=== PATIENT | male | born 1975 | race Caucasian/White ===

== ENCOUNTER 2017-11-13 15:05 | Inpatient (IN) | payer BC, SELFPAY ==
[2017-11-13] VITALS (13 sets, daily range): BP systolic 108–147; BP diastolic 89–126; PULSE 119–130; RESP 17–23; TEMP 36.3–36.7; O2SAT 26–96; BMI 49.4; BMI 49.5; BMI 45.6
--- NOTE | 2017-11-13 15:19 | EKG12_ITS ---
Test Reason : Blood Pressure : / mmHG Vent. Rate : 128 BPM Atrial Rate : 128 BPM P-R Int : 132 ms QRS Dur : 116 ms QT Int : 340 ms P-R-T Axes : 049 091 -30 degrees QTc Int : 496 ms Possible atrial flutter with 2:1 conduction Anterolateral infarct , age undetermined Abnormal ECG Confirmed by JOANNA GALVEZ ([id number]), editor farm journal [facility] SETH ([id number]) on 11/16/2017 2:35:33 PM Referred By: JORDEN Confirmed By:JOANNA GALVEZ
--- NOTE | 2017-11-13 15:21 | CT_ITS ---
STUDY: CTA CHEST REASON FOR EXAM: Male, 42 years old. Hypoxia syncope RADIATION DOSAGE (If Supplied By Facility): CTDIvol = ( 30.02 ) mGy, DLP = ( 782.73 ) mGycm TECHNIQUE: The examination was performed with the intravenous administration of 100ML ml of Isovue 370 contrast material. Post-processing of the angiographic images was performed, with multiplanar reformation and 3D reconstruction. Individualized dose optimization techniques were used for this CT. COMPARISON: None. FINDINGS: There is dense clot extending from the right pulmonary artery into the upper and to greater degree the lower lobe branches including the interlobar artery diffusely and into the lower lobe segmental and subsegmental branches. This is similar on the left side with dense large clot burden within the distal left pulmonary artery extending into the lower lobe branches extensively into the segmental and subsegmental branches. This is also seen in the left upper lobe branches. There is abnormal enhancement of the peripheral pulmonary arteries. Findings are positive for pulmonary embolism. Normal thoracic aorta and visualized great vessels. There is no demonstrated aortic dissection. There is borderline cardiac enlargement. Normal mediastinum. There are bilateral pulmonary emboli. Normal visualized trachea and bronchi. There are interstitial nodular infiltrates within the right lower lobe image #142. There is a focus of interstitial nodular infiltrate in the lingula. Normal pleura. There is bilateral gynecomastia. There are degenerative changes of thoracic spine. The liver is borderline enlarged and fatty infiltrated. There is borderline splenomegaly. CT/CTA Chest W/WO Contrast IMPRESSION: Extensive bilateral pulmonary emboli as detailed above involving both the distal pulmonary arteries branches of the upper and lower lobe pulmonary arteries. Right lower lobe interstitial nodular infiltrate. Lingular interstitial nodular infiltrates. N.B. : The above information has been verbally conveyed by Ladan Zabala MD to Dr. Noel Hernández, Referring Physician, on 11/13/2017 16:21:46 (ET). Electronically Signed: Ladan Zabala MD at 16:20 EDT Tel , Service support , N.B. : The above information has been verbally conveyed by Ladan Zabala MD to Dr. Noel Hernández, Referring Physician, on 11/13/2017 16:21:46 (ET).
[2017-11-13] MEDS: HEPARIN/D5w 25,000 UNITS 25,000 UNITS/250 ML IV.SOLN. 2100 UNITS IV (15:31)
[2017-11-13 15:32] LABS: Absolute Lymphocyte Count 3.36 X10^3/ul (0.83-4.51); Basophil# 0.04 X10^3/uL; Basophil% 0.3 % (0-1); Eosinophils% 0.8 % (0-5); Hematocrit 46.3 % (40-54); Hemoglobin 16.4 g/dl (13.0-16.5); Lymphocyte # 3.36 X10^3/ul (4.0); Lymphocyte % 26.5 % (19-41); Mean Corp Hgb Conc 35.4 g/gl (32-36); Mean Corpuscular Hgb 28.4 pg (27.0-32.0); Mean Corpuscular Volume 80.2 fL (80-94); Mean Platelet Vol. 11.3 fl (6.2-12.0); Monocyte# 1.12 X10^3/uL; Monocyte% 8.8 % (0-10); Neutrophil % 63.2 % (47-70); Platelet Count 209 K/mm3 (150-450); RBC Distribution Width CV 14.1 % (11.6-14.6); RBC Distribution Width SD 40.2 fl (35.1-43.9); Red Blood Count 5.77 M/mm3 (4.6-6.2); White Blood Count 12.7 K/mm3 (4.4-11.0)
[2017-11-13 15:40] LABS: POSITIVE COUNT NO; POSITIVE DIFFERENTIAL NO; POSITIVE MORPHOLOGY NO
[2017-11-13 15:48] LABS: Anion Gap 12 (5-15); BUN 12 mg/dL (7-18); BUN/Creat Ratio 10.8 RATIO (10-20); Calcium,Total 8.6 mg/dL (8.5-10.1); Chloride 101 mmol/L (98-107); Creatinine, Serum 1.11 mg/dL (0.70-1.30); EST Glomerular Filtration Rate 78 mL/min (>60); Est Glom Filt Rate - Afr Amer 94 mL/min (>60); Estimated Creatinine Clearance 98.98 ml/min; Glucose 389 mg/dL (74-106); Potassium 3.8 mmol/L (3.5-5.1); Sodium Level 134 mmol/L (136-145)
[2017-11-13 15:50] LABS: International Normalized Ratio 1.2; Prothrombin Time (Protime)PT. 15.5 SECONDS (11.7-14.9)
[2017-11-13 15:51] LABS: Partial Thromboplast Time 24.1 Seconds (24.1-36.2)
[2017-11-13 16:04] LABS: BNP,B-Type NATRIURETIC PEPTIDE 292.5 pg/mL (0-100)
--- NOTE | 2017-11-13 16:14 | ED.VISSUMM ---
- ER Visit Summary Date of Service: 11/13/17 Chief Complaint: Syncope and dyspnea History of Present Illness: The patient is a 42 M who presents after syncopal episode with shortness of breath and diaphoresis. He was sitting when he passed out. He states he felt like something was moving across his chest before passing out. He denies history of PE or DVT. He states he has chronic swelling of his left leg secondary to fracture. He has no risk factors for pulmonary embolus. He denies fever, chills night sweats. He denies weight gain or weight loss. He denies any ocular, visual or auditory symptoms. He does report palpitations and the unusual chest discomfort prior to syncope. He presently complains of dyspnea and dyspnea on exertion. He denies cough, orthopnea, PND. He denies abdominal pain, nausea, vomiting or diarrhea. He denies black or maroon stool. He denies dysuria, frequency, urgency or hematuria. He denies myalgias, arthralgias or back pain. He denies rash or any lesions. He denies headache, weakness, paresthesias, anesthesias or motor weakness. He does report slight anxiousness. He denies bruising easily or bleeding disorder. He denies urticaria or angioedema. Physical Examination: Vital signs unremarkable blood pressure 137/93, temperature 96.7, heart rate 130, respiratory 23 and a saturation 97% on room air. He appears slightly diaphoretic. BMI is 49.5. He appears slightly pale and diaphoretic. Head is atraumatic normocephalic. Pupils are equal round reactive. Extraocular muscles are intact. TMs are pearly white with landmarks noted. Nares patent with no drainage. Posterior pharynx without erythema or exudate. Uvula is midline. There is no dysphonia or dysphasia. Trachea is midline. There is no stridor with auscultation of the neck. Heart is rapid and regular without murmur, gallop or rub. S1 and S2 are normal. Lungs are clear to auscultation with good movement of air bilaterally. Abdomen is soft nontender. There is 1-2+ pitting edema both right and left lower extremity. Neuro exam is nonfocal. Test Results: EEG reveals sinus tachycardia rate of 128 with significant right heart strain and S1, every 3 and T3 consistent with pulmonary embolus. CTA of the of the chest was reviewed by me and reveals significant right and left main pulmonary emboli with significant clot burden. Awaiting formal read by radiologist. White count elevated 12.7. Glucose elevated 389. Mitral counseled was unremarkable. INR and PTT are normal. Troponin is elevated 0.19 and B SANITATION WORKER HOSING MACHINERY is 292.5. Call was placed to hospitalist regarding admission and tin flopper for consideration of thrombolytics. Patient's blood pressure has dropped from presentation to the systolic 101 and pulse ox has dropped from 97% to 91%. Recommend admission to stepdown unit versus ICU. Emergency Department Course and Treatment: After reviewing x-ray that was performed per nurse protocol. Patient has classic finding for mass/submassive pulmonary embolus with right heart strain and an S1, every 3 T3 with a rate of 120. Appropriate blood work was ordered as well as CTA. He did receive a 3 cc/kg bolus of normal saline. He was started on heparin. Did receive a bolus. Spoke with Dr. Monge regarding echocardiogram to evaluate for significant heart strain and possibility of TPA. Treatment Plan: Admit in serious to critical condition on heparin bolus and drip. Disposition: Full admission Impression: 1. Submassive pulmonary embolus with high clot burden 2. Sinus tachycardia documented on monitor with right heart strain and findings consistent with pulmonary embolus 3. Hyperglycemia in a nondiabetic, 389 4. History of hypertension This note was generated with [employer] dictation software. It may contain incorrect words, spelling, and punctuation that were not noted in review of the chart prior to signing ED Disposition - Plan for ED Patient: Chief Complaint: Syncope
--- NOTE | 2017-11-13 16:25 | ED.DCSUM_ITS ---
- ER Visit Summary Date of Service: 11/13/17 Chief Complaint: Syncope and dyspnea History of Present Illness: The patient is a 42 M who presents after syncopal episode with shortness of breath and diaphoresis. He was sitting when he passed out. He states he felt like something was moving across his chest before passing out. He denies history of PE or DVT. He states he has chronic swelling of his left leg secondary to fracture. He has no risk factors for pulmonary embolus. He denies fever, chills night sweats. He denies weight gain or weight loss. He denies any ocular, visual or auditory symptoms. He does report palpitations and the unusual chest discomfort prior to syncope. He presently complains of dyspnea and dyspnea on exertion. He denies cough, orthopnea, PND. He denies abdominal pain, nausea, vomiting or diarrhea. He denies black or maroon stool. He denies dysuria, frequency, urgency or hematuria. He denies myalgias, arthralgias or back pain. He denies rash or any lesions. He denies headache, weakness, paresthesias, anesthesias or motor weakness. He does report slight anxiousness. He denies bruising easily or bleeding disorder. He denies urticaria or angioedema. Physical Examination: Vital signs unremarkable blood pressure 137/93, temperature 96.7, heart rate 130, respiratory 23 and a saturation 97% on room air. He appears slightly diaphoretic. BMI is 49.5. He appears slightly pale and diaphoretic. Head is atraumatic normocephalic. Pupils are equal round reactive. Extraocular muscles are intact. TMs are pearly white with landmarks noted. Nares patent with no drainage. Posterior pharynx without erythema or exudate. Uvula is midline. There is no dysphonia or dysphasia. Trachea is midline. There is no stridor with auscultation of the neck. Heart is rapid and regular without murmur, gallop or rub. S1 and S2 are normal. Lungs are clear to auscultation with good movement of air bilaterally. Abdomen is soft nontender. There is 1-2+ pitting edema both right and left lower extremity. Neuro exam is nonfocal. Test Results: EEG reveals sinus tachycardia rate of 128 with significant right heart strain and S1, every 3 and T3 consistent with pulmonary embolus. CTA of the of the chest was reviewed by me and reveals significant right and left main pulmonary emboli with significant clot burden. Awaiting formal read by radiologist. White count elevated 12.7. Glucose elevated 389. Mitral counseled was unremarkable. INR and PTT are normal. Troponin is elevated 0.19 and B BLACK TOP PAVER OPERATOR is 292.5. Call was placed to hospitalist regarding admission and sql report writer for consideration of thrombolytics. Patient's blood pressure has dropped from presentation to the systolic 101 and pulse ox has dropped from 97% to 91%. Recommend admission to stepdown unit versus ICU. Emergency Department Course and Treatment: After reviewing x-ray that was performed per nurse protocol. Patient has classic finding for mass/submassive pulmonary embolus with right heart strain and an S1, every 3 T3 with a rate of 120. Appropriate blood work was ordered as well as CTA. He did receive a 3 cc/ kg bolus of normal saline. He was started on heparin. Did receive a bolus. Spoke with Dr. Monge regarding echocardiogram to evaluate for significant heart strain and possibility of TPA. Treatment Plan: Admit in serious to critical condition on heparin bolus and drip. Disposition: Full admission Impression: 1. Submassive pulmonary embolus with high clot burden 2. Sinus tachycardia documented on monitor with right heart strain and findings consistent with pulmonary embolus 3. Hyperglycemia in a nondiabetic, 389 4. History of hypertension This note was generated with [employer] dictation software. It may contain incorrect words, spelling, and punctuation that were not noted in review of the chart prior to signing ED Disposition - Plan for ED Patient: Chief Complaint: Syncope
[2017-11-13] MEDS: Heparin Injection 5,000 UNITS/ML Syringe 13000 UNITS IV (16:35)
--- NOTE | 2017-11-13 17:36 | PCM.HP.STD ---
Problem List (1) Pulmonary embolism Status: Acute (2) NSTEMI (non-ST elevated myocardial infarction) Status: Acute (3) DM2 (diabetes mellitus, type 2) Status: Chronic Qualifiers: Diabetes mellitus exterminator termite insulin use: without nursing home use (4) Morbid obesity Status: Chronic (5) Hypertension Status: Chronic History of Present Illness Date of Admission: 11/13/17 Chief Complaint: shortness of breath. syncope The patient is a 42 year old M who developed shortness of breath today and had a syncopal episode while he was sitting up. Presented to the emergency room and was concerning for pulmonary embolism and patient was started on heparin drip. Patient was tachycardic but sats remained normal. A CT angiogram of the chest showed bilateral pulmonary emboli. Patient denies any history of blood clots in his legs or his lungs before. Patient states that he has chronic lower extremity swelling but no new changes noted with that. Patient has not had any prolonged in immobility recently. Patient denies any chest pain. [] Past Medical History Past Medical History (Chronic Problems): Chronic Problems DM2 (diabetes mellitus, type 2) (Chronic) Morbid obesity (Chronic) Hypertension (Chronic) Allergies No Known Allergies Allergy (Verified 11/13/17 15:06) Home Medications: Ambulatory Orders Medication Instructions Recorded Lisinopril [Zestril] 10 mg PO DAILY 11/13/17 Psychiatric History: No pertinent psych hx Lives: Spouse/ Significant Other Smoking Status: Never smoker Tobacco Use: Non-smoker Alcohol: None Drugs: None - *Family History Maternal History Items: - - No VTE Review of Systems Constitutional: Denies: Anorexia, Chills, Fever, Weight Change Eyes: Denies: Blurred vision, Double vision HEENT: Denies: Difficulty Hearing Cardiovascular: Reports: Edema, - - noted apneic episodes per .. Denies: Chest Pain, Claudication, Chest Pressure, Chest Tightness Respiratory: Reports: Shortness of Breath, Shortness of breath upon exertion. Denies: Hemoptysis Gastrointestinal: Denies: Abdominal Pain, Nausea, Vomiting Genitourinary: Denies: Dysuria Musculoskeletal: Denies: Joint Pain, Joint Tenderness Skin: Denies: Rash, Wounds Neurological: Reports: - - syncope. Denies: Focal weakness, Numbness, Tingling Psychiatric: Denies: Anxiety, Depression Endocrine: Denies: Change in Body Habitus, Heat/ Cold Intolerance Hematologic/ Lymphatic: Denies: Easy Bruising, Easy Bleeding, Hx of blood clot VTE Information - Inpt Only VTE Present on Admission: Yes Patient Problems: Active and Suspected Problems Pulmonary embolism (Acute) NSTEMI (non-ST elevated myocardial infarction) (Acute) - Physical Exam General: Alert, Cooperative, No apparent distress, - - No respiratory distress. No conversational dyspnea. HEENT: Atraumatic, Normocephalic Oral: Moist Mucosa, No Gingival or Mucosal Lesions/ Ulcerations Neck: No Nodes, Thyroid Normal Size and Texture Lungs: Clear to auscultation, Normal air movement, No rhonchi, No wheeze Cardiovascular: Regular Rhythm, Normal S1, Normal S2, Tachycardic Abdomen: Bowel Sounds Present, Soft, Non Tender, Non-Distended, No Hepato-splenomegaly, Obese Extremities: No Calf Tenderness, Edema - Trace Skin: No rashes, No breakdown Musculoskeletal: No Tenderness to Palpation of Joints or Extremities, No Muscle Wasting Neurological: - - DTRs are 3-4 in the right patellar reflex and throat for left patellar reflex. No clonus. Psych/Mental Status: Normal Affect, Appropriate Vital Signs Temp Pulse Resp BP Pulse Ox 36.7 C 126 H 17 124/92 H 94 11/13/17 16:40 11/13/17 16:40 11/13/17 16:40 11/13/17 16:40 11/13/17 16:40 Oxygen Delivery Method Room Air Weight: 170.097 kg Body Mass Index (BMI) 49.4 Laboratory Tests Past 24 Hrs 11/13/17 11/13/17 11/13/17 15:15 15:15 15:15 WBC 12.7 H RBC 5.77 Hgb 16.4 Hct 46.3 MCV 80.2 MCH 28.4 MCHC 35.4 RDW 14.1 RDW Differential 40.2 Plt Count 209 MPV 11.3 Immature Gran % (Auto) 0.400 Neut % (Auto) 63.2 Lymph % (Auto) 26.5 [place] % (Auto) 8.8 Eos % (Auto) 0.8 Baso % (Auto) 0.3 Absolute Neuts (auto) 8.0 H Absolute Lymphs (auto) 3.36 Total Counted Not Reportable PT 15.5 H INR 1.2 APTT 24.1 Sodium 134 L Potassium 3.8 Chloride 101 Carbon Dioxide 21.0 Anion Gap 12 BUN 12 Creatinine 1.11 Estim Creat Clear Calc 98.98 Est GFR (MDRD) Af Amer 94 Est GFR (MDRD) Non-Af 78 BUN/Creatinine Ratio 10.8 Glucose 389 H Calcium 8.6 Troponin I 0.19 H B-Natriuretic Peptide 11/13/17 15:15 WBC RBC Hgb Hct MCV MCH MCHC RDW RDW Differential Plt Count MPV Immature Gran % (Auto) Neut % (Auto) Lymph % (Auto) [place] % (Auto) Eos % (Auto) Baso % (Auto) Absolute Neuts (auto) Absolute Lymphs (auto) Total Counted PT INR APTT Sodium Potassium Chloride Carbon Dioxide Anion Gap BUN Creatinine Estim Creat Clear Calc Est GFR (MDRD) Af Amer Est GFR (MDRD) Non-Af BUN/Creatinine Ratio Glucose Calcium Troponin I B-Natriuretic Peptide 292.5 H Clinical Impression(s) from Imaging Studies Chest CTA 11/13/17 15:21 IMPRESSION: Extensive bilateral pulmonary emboli as detailed above involving both the distal pulmonary arteries branches of the upper and lower lobe pulmonary arteries. Right lower lobe interstitial nodular infiltrate. Lingular interstitial nodular infiltrates. N.B. : The above information has been verbally conveyed by Ladan Zabala MD to Dr. Noel Hernández, Referring Physician, on 11/13/2017 16:21:46 (ET). Electronically Signed: Ladan Zabala MD at 16:20 EDT Tel , Service support , N.B. : The above information has been verbally conveyed by Ladan Zabala MD to Dr. Noel Hernández, Referring Physician, on 11/13/2017 16:21:46 (ET). Assessment/Plan Active and Suspected Problems Pulmonary embolism (Acute) NSTEMI (non-ST elevated myocardial infarction) (Acute) 1. Acute pulmonary emboli I do not feel the patient requires TPA at this time. I agree with continuation of a heparin drip for now. Will assess patient's but I did discuss briefly about oral anticoagulants. I did recommend Xarelto or Eliquis over Pradaxa and Coumadin. Once patient is more medically stable I feel that patient can be initiated on oral anticoagulation. Given that this was an event that was unprovoked, patient would require indefinite, lifelong anticoagulation. 2. Non-STEMI Likely type II I feel this is secondary to the pulmonary embolism. We will cycle troponin series but I do not feel it necessary for cardiology to be involved at this time. I do not feel that stress tests is warranted at this time as I feel that the likely etiology is due to the pulmonary emboli Check an echocardiogram to evaluate for right heart strain. 3. Diabetes mellitus type 2 Newly diagnosed but I feel this is more chronic discussed with the patient that we will put him on sliding scale insulin while he was here. Certainly the underlying duress of the pulmonary embolism is Contributing somewhat to his elevated blood sugar but I feel that he most likely has very poorly controlled diabetes at baseline. Check an A1c Depending on blood sugars play out then patient may be a candidate for metformin but they will need to be held for [address] angiogram 4. Possible obstructive sleep apnea notes the patient's had witnessed apneic episodes. Patient has not sought evaluation for this. I did impress upon him the importance of sleep study and evaluation for sleep apnea and central risk for heart failure and even . 5. Morbid obesity Patient expressed desire to lose weight. 6. Syncope secondary to the pulmonary emboli Code Visit Inpatient E&M: 08514 Init Hosp L3
--- NOTE | 2017-11-13 17:46 | HP.PCM_ITS ---
Problem List (1) Pulmonary embolism Status: Acute (2) NSTEMI (non-ST elevated myocardial infarction) Status: Acute (3) DM2 (diabetes mellitus, type 2) Status: Chronic Qualifiers: Diabetes mellitus oil heaterman insulin use: without detention use (4) Morbid obesity Status: Chronic (5) Hypertension Status: Chronic History of Present Illness Date of Admission: 11/13/17 Chief Complaint: shortness of breath. syncope The patient is a 42 year old M who developed shortness of breath today and had a syncopal episode while he was sitting up. Presented to the emergency room and was concerning for pulmonary embolism and patient was started on heparin drip. Patient was tachycardic but sats remained normal. A CT angiogram of the chest showed bilateral pulmonary emboli. Patient denies any history of blood clots in his legs or his lungs before. Patient states that he has chronic lower extremity swelling but no new changes noted with that. Patient has not had any prolonged in immobility recently. Patient denies any chest pain. [] Past Medical History Past Medical History (Chronic Problems): Chronic Problems DM2 (diabetes mellitus, type 2) (Chronic) Morbid obesity (Chronic) Hypertension (Chronic) Allergies No Known Allergies Allergy (Verified 11/13/17 15:06) Home Medications: Ambulatory Orders Medication Instructions Recorded Lisinopril [Zestril] 10 mg PO DAILY 11/13/17 Psychiatric History: No pertinent psych hx Lives: Spouse/ Significant Other Smoking Status: Never smoker Tobacco Use: Non-smoker Alcohol: None Drugs: None - *Family History Maternal History Items: - - No VTE Review of Systems Constitutional: Denies: Anorexia, Chills, Fever, Weight Change Eyes: Denies: Blurred vision, Double vision HEENT: Denies: Difficulty Hearing Cardiovascular: Reports: Edema, - - noted apneic episodes per .. Denies: Chest Pain, Claudication, Chest Pressure, Chest Tightness Respiratory: Reports: Shortness of Breath, Shortness of breath upon exertion. Denies: Hemoptysis Gastrointestinal: Denies: Abdominal Pain, Nausea, Vomiting Genitourinary: Denies: Dysuria Musculoskeletal: Denies: Joint Pain, Joint Tenderness Skin: Denies: Rash, Wounds Neurological: Reports: - - syncope. Denies: Focal weakness, Numbness, Tingling Psychiatric: Denies: Anxiety, Depression Endocrine: Denies: Change in Body Habitus, Heat/ Cold Intolerance Hematologic/ Lymphatic: Denies: Easy Bruising, Easy Bleeding, Hx of blood clot VTE Information - Inpt Only VTE Present on Admission: Yes Patient Problems: Active and Suspected Problems Pulmonary embolism (Acute) NSTEMI (non-ST elevated myocardial infarction) (Acute) - Physical Exam General: Alert, Cooperative, No apparent distress, - - No respiratory distress. No conversational dyspnea. HEENT: Atraumatic, Normocephalic Oral: Moist Mucosa, No Gingival or Mucosal Lesions/ Ulcerations Neck: No Nodes, Thyroid Normal Size and Texture Lungs: Clear to auscultation, Normal air movement, No rhonchi, No wheeze Cardiovascular: Regular Rhythm, Normal S1, Normal S2, Tachycardic Abdomen: Bowel Sounds Present, Soft, Non Tender, Non-Distended, No Hepato- splenomegaly, Obese Extremities: No Calf Tenderness, Edema - Trace Skin: No rashes, No breakdown Musculoskeletal: No Tenderness to Palpation of Joints or Extremities, No Muscle Wasting Neurological: - - DTRs are 3-4 in the right patellar reflex and throat for left patellar reflex. No clonus. Psych/Mental Status: Normal Affect, Appropriate Vital Signs Temp Pulse Resp BP Pulse Ox 36.7 C 126 H 17 124/92 H 94 11/13/17 16:40 11/13/17 16:40 11/13/17 16:40 11/13/17 16:40 11/13/17 16:40 Oxygen Delivery Method Room Air Weight: 170.097 kg Body Mass Index (BMI) 49.4 Laboratory Tests Past 24 Hrs 11/13/17 11/13/17 11/13/17 15:15 15:15 15:15 WBC 12.7 H RBC 5.77 Hgb 16.4 Hct 46.3 MCV 80.2 MCH 28.4 MCHC 35.4 RDW 14.1 RDW Differential 40.2 Plt Count 209 MPV 11.3 Immature Gran % (Auto) 0.400 Neut % (Auto) 63.2 Lymph % (Auto) 26.5 Dawson % (Auto) 8.8 Eos % (Auto) 0.8 Baso % (Auto) 0.3 Absolute Neuts (auto) 8.0 H Absolute Lymphs (auto) 3.36 Total Counted Not Reportable PT 15.5 H INR 1.2 APTT 24.1 Sodium 134 L Potassium 3.8 Chloride 101 Carbon Dioxide 21.0 Anion Gap 12 BUN 12 Creatinine 1.11 Estim Creat Clear Calc 98.98 Est GFR (MDRD) Af Amer 94 Est GFR (MDRD) Non-Af 78 BUN/Creatinine Ratio 10.8 Glucose 389 H Calcium 8.6 Troponin I 0.19 H B-Natriuretic Peptide 11/13/17 15:15 WBC RBC Hgb Hct MCV MCH MCHC RDW RDW Differential Plt Count MPV Immature Gran % (Auto) Neut % (Auto) Lymph % (Auto) Dawson % (Auto) Eos % (Auto) Baso % (Auto) Absolute Neuts (auto) Absolute Lymphs (auto) Total Counted PT INR APTT Sodium Potassium Chloride Carbon Dioxide Anion Gap BUN Creatinine Estim Creat Clear Calc Est GFR (MDRD) Af Amer Est GFR (MDRD) Non-Af BUN/Creatinine Ratio Glucose Calcium Troponin I B-Natriuretic Peptide 292.5 H Clinical Impression(s) from Imaging Studies Chest CTA 11/13/17 15:21 IMPRESSION: Extensive bilateral pulmonary emboli as detailed above involving both the distal pulmonary arteries branches of the upper and lower lobe pulmonary arteries. Right lower lobe interstitial nodular infiltrate. Lingular interstitial nodular infiltrates. N.B. : The above information has been verbally conveyed by Ladan Zabala MD to Dr. Noel Hernández, Referring Physician, on 11/13/2017 16:21:46 (ET). Electronically Signed: Ladan Zabala MD at 16:20 EDT Tel , Service support , N.B. : The above information has been verbally conveyed by Ladan Zabala MD to Dr. Noel Hernández, Referring Physician, on 11/13/2017 16:21:46 (ET). Assessment/Plan Active and Suspected Problems Pulmonary embolism (Acute) NSTEMI (non-ST elevated myocardial infarction) (Acute) 1. Acute pulmonary emboli * I do not feel the patient requires TPA at this time. I agree with continuation of a heparin drip for now. * Will assess patient's but I did discuss briefly about oral anticoagulants. I did recommend Xarelto or Eliquis over Pradaxa and Coumadin. Once patient is more medically stable I feel that patient can be initiated on oral anticoagulation. Given that this was an event that was unprovoked, patient would require indefinite, lifelong anticoagulation. 2. Non-STEMI * Likely type II * I feel this is secondary to the pulmonary embolism. We will cycle troponin series but I do not feel it necessary for cardiology to be involved at this time. * I do not feel that stress tests is warranted at this time as I feel that the likely etiology is due to the pulmonary emboli * Check an echocardiogram to evaluate for right heart strain. 3. Diabetes mellitus type 2 * Newly diagnosed but I feel this is more chronic discussed with the patient that we will put him on sliding scale insulin while he was here. Certainly the underlying duress of the pulmonary embolism is * Contributing somewhat to his elevated blood sugar but I feel that he most likely has very poorly controlled diabetes at baseline. * Check an A1c * Depending on blood sugars play out then patient may be a candidate for metformin but they will need to be held for [address] angiogram 4. Possible obstructive sleep apnea * notes the patient's had witnessed apneic episodes. Patient has not sought evaluation for this. I did impress upon him the importance of sleep study and evaluation for sleep apnea and central risk for heart failure and even . 5. Morbid obesity * Patient expressed desire to lose weight. 6. Syncope * secondary to the pulmonary emboli Code Visit Inpatient E&M: 96041 Init Hosp L3
[2017-11-13] MEDS: 0.9% Normal Saline 1,000 ML 150 ML IV (19:11)
[2017-11-13] MEDS: Ondansetron 4 MG/2 ML Vial IV (19:11)
[2017-11-13 21:49] LABS: Partial Thromboplast Time 66.7 Seconds (24.1-36.2)
[2017-11-13 22:55] LABS: Bedside Glucose 347 mg/dL (70-110)
[2017-11-14] VITALS (19 sets, daily range): BP systolic 115–140; BP diastolic 83–102; PULSE 102–118; RESP 18–22; TEMP 36.6–37.3; O2SAT 91–97
[2017-11-14] MEDS: MELATONIN 3 MG TABLET PO ×2 (00:01→22:20)
[2017-11-14 01:01] LABS: Bedside Glucose 307 mg/dL (70-110)
[2017-11-14] MEDS: Ondansetron 4 MG/2 ML Vial IV (02:50)
[2017-11-14] MEDS: HEPARIN/D5w 25,000 UNITS 25,000 UNITS/250 ML IV.SOLN. 20 UNITS IV ×3 (03:58→20:59)
[2017-11-14 04:30] LABS: Hematocrit 42.7 % (40-54); Hemoglobin 14.9 g/dl (13.0-16.5); Mean Corp Hgb Conc 34.9 g/gl (32-36); Mean Corpuscular Hgb 28.3 pg (27.0-32.0); Mean Platelet Vol. 11.4 fl (6.2-12.0); Platelet Count 190 K/mm3 (150-450); RBC Distribution Width CV 14.1 % (11.6-14.6); RBC Distribution Width SD 40.9 fl (35.1-43.9); Red Blood Count 5.27 M/mm3 (4.6-6.2); White Blood Count 13.7 K/mm3 (4.4-11.0)
[2017-11-14 04:35] LABS: Partial Thromboplast Time 40.3 Seconds (24.1-36.2)
[2017-11-14 04:39] LABS: Scan Indicated on CBC? Y/N NO
[2017-11-14 04:43] LABS: Anion Gap 13 (5-15); BUN 13 mg/dL (7-18); BUN/Creat Ratio 13.9 RATIO (10-20); Calcium,Total 8.4 mg/dL (8.5-10.1); Chloride 101 mmol/L (98-107); Creatinine, Serum 0.93 mg/dL (0.70-1.30); EST Glomerular Filtration Rate 95 mL/min (>60); Est Glom Filt Rate - Afr Amer 115 mL/min (>60); Estimated Creatinine Clearance 118.13 ml/min; Glucose 326 mg/dL (74-106); Sodium Level 135 mmol/L (136-145)
[2017-11-14 06:35] LABS: Bedside Glucose 367 mg/dL (70-110)
--- NOTE | 2017-11-14 08:10 | PCM.PROGNOTE ---
Patient Problems: Active and Suspected Problems Pulmonary embolism (Acute) NSTEMI (non-ST elevated myocardial infarction) (Acute) Subjective: Chief complaint: Follow-up after admission for extensive bilateral mammary emboli, acute non-ST elevation DE and newly diagnosed type 2 diabetes mellitus. Patient seen and examined. No acute events overnight. He mentioned that his breathing is getting better. Denied chest pain or palpitations. Denied dizziness or lightheadedness. He denied recent history of surgery. Denied patient history of cancer. He is active doing his daily activities without restrictions. He denied personal or family history of bleeding or clotting problems. He is afebrile, tachycardic, blood pressure stable and his pulse ox is 93% on room air. - Physical Exam General: Alert, Oriented x3, Cooperative, - - Minimal shortness of breath. HEENT: Atraumatic, PERRLA, EOMI Oral: Moist Mucosa, No Gingival or Mucosal Lesions/ Ulcerations Neck: Supple, No JVD, Negative Carotid Bruits, Trachea Midline, Thyroid Normal Size and Texture Lungs: Clear to auscultation, No rhonchi, No wheeze, No rales, Diminished Cardiovascular: Regular rate, Regular Rhythm, Normal S1, Normal S2, PMI Normal, Tachycardic Abdomen: Bowel Sounds Present, Soft, Non Tender, Non-Distended, No Hepato-splenomegaly Extremities: No clubbing, No cyanosis, No edema Skin: No rashes, No breakdown Lymphatic: No Cervical, Supraclavicular, or Inguinal Adenopathy Neurological: Cranial nerves II-XII grossly intact, Motor Exam 5/5 strength throughout Psych/Mental Status: Normal Affect, Appropriate, Alert and oriented to time, place, person, mood and affect Vital Signs Temp Pulse Resp BP Pulse Ox 97.8 F 106 H 18 139/102 H 95 11/14/17 01:18 11/14/17 07:23 11/14/17 07:15 11/14/17 06:00 11/14/17 07:37 Oxygen Delivery Method Room Air Weight: 346 lb 5.539 oz Body Mass Index (BMI) 45.6 Intake and Output for Last 24 Hours 11/12/17 11/13/17 11/14/17 23:59 23:59 23:59 Intake Total 59.4 / 59.4 2848 / 2848 Output Total 600 / 600 Balance 59.4 / 59.4 2248 / 2248 Laboratory Tests Past 24 Hrs 11/13/17 11/13/17 11/13/17 19:20 21:23 21:23 WBC RBC Hgb Hct MCV MCH MCHC RDW RDW Differential Plt Count MPV APTT 66.7 H Sodium Potassium Chloride Carbon Dioxide Anion Gap BUN Creatinine Estim Creat Clear Calc Est GFR (MDRD) Af Amer Est GFR (MDRD) Non-Af BUN/Creatinine Ratio Glucose Hemoglobin A1c Calcium Troponin I 0.22 H 0.22 H 11/14/17 11/14/17 11/14/17 04:00 04:00 04:00 WBC 13.7 H RBC 5.27 Hgb 14.9 Hct 42.7 MCV 81.0 MCH 28.3 MCHC 34.9 RDW 14.1 RDW Differential 40.9 Plt Count 190 MPV 11.4 APTT Sodium 135 L Potassium 4.0 Chloride 101 Carbon Dioxide 21.0 Anion Gap 13 BUN 13 Creatinine 0.93 Estim Creat Clear Calc 118.13 Est GFR (MDRD) Af Amer 115 Est GFR (MDRD) Non-Af 95 BUN/Creatinine Ratio 13.9 Glucose 326 H Hemoglobin A1c 10.0 H Calcium 8.4 L Troponin I 11/14/17 04:00 WBC RBC Hgb Hct MCV MCH MCHC RDW RDW Differential Plt Count MPV APTT 40.3 H Sodium Potassium Chloride Carbon Dioxide Anion Gap BUN Creatinine Estim Creat Clear Calc Est GFR (MDRD) Af Amer Est GFR (MDRD) Non-Af BUN/Creatinine Ratio Glucose Hemoglobin A1c Calcium Troponin I POC Glucose 11/14/17 11/14/17 11/13/17 06:28 00:50 22:30 POC Glucose 367 H 307 H 347 H Clinical Impression(s) from Imaging Studies Chest CTA 11/13/17 15:21 IMPRESSION: Extensive bilateral pulmonary emboli as detailed above involving both the distal pulmonary arteries branches of the upper and lower lobe pulmonary arteries. Right lower lobe interstitial nodular infiltrate. Lingular interstitial nodular infiltrates. N.B. : The above information has been verbally conveyed by Ladan Zabala MD to Dr. Noel Hernández, Referring Physician, on 11/13/2017 16:21:46 (ET). Electronically Signed: Ladan Zabala MD at 16:20 EDT Tel , Service support , N.B. : The above information has been verbally conveyed by Ladan Zabala MD to Dr. Noel Hernández, Referring Physician, on 11/13/2017 16:21:46 (ET). Medical Necessity - Tobacco Use Smoking Status: Never smoker Tobacco Use: Non-smoker Assessment/Plan Active and Suspected Problems Pulmonary embolism (Acute) NSTEMI (non-ST elevated myocardial infarction) (Acute) This is a 42 years old male patient presented to the medicine because of shortness of breath and syncopal episode, found to have extensive bilateral pulmonary emboli that complicated by acute non-ST elevation DE and also was diagnosed with type 2 diabetes mellitus. #1 acute extensive bilateral pulmonary emboli: This is unprovoked, patient has no risk factors for PEs or DVTs. No clinical evidence of acute DVT. He is on IV heparin drip. He is tachycardic, blood pressure stable and pulse ox is stable on room air. 2D echocardiogram revealed normal LV size and function, moderately severe global right ventricular systolic dysfunction and severely dilated right ventricle. Routine blood work was remarkable for mild leukocytosis, otherwise normal. Plan: Continue IV heparin drip, will do hypercoagulable workup including protein C, protein S, factor V Leiden, anti-thrombin 3, and anticardiolipin #2 acute non-ST elevation DE: Likely because of demand ischemia secondary to massive PEs. EKG revealed sinus tachycardia. Troponin is borderline elevated and flat. Patient denies any chest pain. 2D echocardiogram reviewed as above. Patient is on IV heparin. #3 newly diagnosed type 2 diabetes mellitus: Blood sugar has been in the range of 300-400. Hemoglobin A1c was 10. Patient is on sliding scale only. Plan: Start Levemir insulin 10 units twice daily, continue sliding scale and Accu-Cheks. #4 hypertension: Continue lisinopril, blood pressure stable. #5 suspected obstructive sleep apnea: Reportedly, mentioned that he has been having apneic episodes during sleep. Patient will need sleep study as outpatient. #6 DVT prophylaxis: He is on IV heparin drip. This note was generated with [employer] software. It may contain incorrect words, spelling, and punctuation that were not noted in checking the note before signing. Code Visit Inpatient E&M: 46748 Subs Hosp L3
--- NOTE | 2017-11-14 08:17 | PN_ITS ---
Patient Problems: Active and Suspected Problems Pulmonary embolism (Acute) NSTEMI (non-ST elevated myocardial infarction) (Acute) Subjective: Chief complaint: Follow-up after admission for extensive bilateral mammary emboli, acute non-ST elevation [place] and newly diagnosed type 2 diabetes mellitus. Patient seen and examined. No acute events overnight. He mentioned that his breathing is getting better. Denied chest pain or palpitations. Denied dizziness or lightheadedness. He denied recent history of surgery. Denied patient history of cancer. He is active doing his daily activities without restrictions. He denied personal or family history of bleeding or clotting problems. He is afebrile, tachycardic, blood pressure stable and his pulse ox is 93% on room air. - Physical Exam General: Alert, Oriented x3, Cooperative, - - Minimal shortness of breath. HEENT: Atraumatic, PERRLA, EOMI Oral: Moist Mucosa, No Gingival or Mucosal Lesions/ Ulcerations Neck: Supple, No JVD, Negative Carotid Bruits, Trachea Midline, Thyroid Normal Size and Texture Lungs: Clear to auscultation, No rhonchi, No wheeze, No rales, Diminished Cardiovascular: Regular rate, Regular Rhythm, Normal S1, Normal S2, PMI Normal, Tachycardic Abdomen: Bowel Sounds Present, Soft, Non Tender, Non-Distended, No Hepato- splenomegaly Extremities: No clubbing, No cyanosis, No edema Skin: No rashes, No breakdown Lymphatic: No Cervical, Supraclavicular, or Inguinal Adenopathy Neurological: Cranial nerves II-XII grossly intact, Motor Exam 5/5 strength throughout Psych/Mental Status: Normal Affect, Appropriate, Alert and oriented to time, place, person, mood and affect Vital Signs Temp Pulse Resp BP Pulse Ox 97.8 F 106 H 18 139/102 H 95 11/14/17 01:18 11/14/17 07:23 11/14/17 07:15 11/14/17 06:00 11/14/17 07:37 Oxygen Delivery Method Room Air Weight: 346 lb 5.539 oz Body Mass Index (BMI) 45.6 Intake and Output for Last 24 Hours 11/12/17 11/13/17 11/14/17 23:59 23:59 23:59 Intake Total 59.4 / 59.4 2848 / 2848 Output Total 600 / 600 Balance 59.4 / 59.4 2248 / 2248 Laboratory Tests Past 24 Hrs 11/13/17 11/13/17 11/13/17 19:20 21:23 21:23 WBC RBC Hgb Hct MCV MCH MCHC RDW RDW Differential Plt Count MPV APTT 66.7 H Sodium Potassium Chloride Carbon Dioxide Anion Gap BUN Creatinine Estim Creat Clear Calc Est GFR (MDRD) Af Amer Est GFR (MDRD) Non-Af BUN/Creatinine Ratio Glucose Hemoglobin A1c Calcium Troponin I 0.22 H 0.22 H 11/14/17 11/14/17 11/14/17 04:00 04:00 04:00 WBC 13.7 H RBC 5.27 Hgb 14.9 Hct 42.7 MCV 81.0 MCH 28.3 MCHC 34.9 RDW 14.1 RDW Differential 40.9 Plt Count 190 MPV 11.4 APTT Sodium 135 L Potassium 4.0 Chloride 101 Carbon Dioxide 21.0 Anion Gap 13 BUN 13 Creatinine 0.93 Estim Creat Clear Calc 118.13 Est GFR (MDRD) Af Amer 115 Est GFR (MDRD) Non-Af 95 BUN/Creatinine Ratio 13.9 Glucose 326 H Hemoglobin A1c 10.0 H Calcium 8.4 L Troponin I 11/14/17 04:00 WBC RBC Hgb Hct MCV MCH MCHC RDW RDW Differential Plt Count MPV APTT 40.3 H Sodium Potassium Chloride Carbon Dioxide Anion Gap BUN Creatinine Estim Creat Clear Calc Est GFR (MDRD) Af Amer Est GFR (MDRD) Non-Af BUN/Creatinine Ratio Glucose Hemoglobin A1c Calcium Troponin I POC Glucose 11/14/17 11/14/17 11/13/17 06:28 00:50 22:30 POC Glucose 367 H 307 H 347 H Clinical Impression(s) from Imaging Studies Chest CTA 11/13/17 15:21 IMPRESSION: Extensive bilateral pulmonary emboli as detailed above involving both the distal pulmonary arteries branches of the upper and lower lobe pulmonary arteries. Right lower lobe interstitial nodular infiltrate. Lingular interstitial nodular infiltrates. N.B. : The above information has been verbally conveyed by Ladan Zabala MD to Dr. Noel Hernández, Referring Physician, on 11/13/2017 16:21:46 (ET). Electronically Signed: Ladan Zabala MD at 16:20 EDT Tel , Service support , N.B. : The above information has been verbally conveyed by Ladan Zabala MD to Dr. Noel Hernández, Referring Physician, on 11/13/2017 16:21:46 (ET). Medical Necessity - Tobacco Use Smoking Status: Never smoker Tobacco Use: Non-smoker Assessment/Plan Active and Suspected Problems Pulmonary embolism (Acute) NSTEMI (non-ST elevated myocardial infarction) (Acute) This is a 42 years old male patient presented to the medicine because of shortness of breath and syncopal episode, found to have extensive bilateral pulmonary emboli that complicated by acute non-ST elevation [place] and also was diagnosed with type 2 diabetes mellitus. #1 acute extensive bilateral pulmonary emboli: This is unprovoked, patient has no risk factors for PEs or DVTs. No clinical evidence of acute DVT. He is on IV heparin drip. He is tachycardic, blood pressure stable and pulse ox is stable on room air. 2D echocardiogram revealed normal LV size and function, moderately severe global right ventricular systolic dysfunction and severely dilated right ventricle. Routine blood work was remarkable for mild leukocytosis, otherwise normal. Plan: Continue IV heparin drip, will do hypercoagulable workup including protein C, protein S, factor V Leiden, anti- thrombin 3, and anticardiolipin #2 acute non-ST elevation [place]: Likely because of demand ischemia secondary to massive PEs. EKG revealed sinus tachycardia. Troponin is borderline elevated and flat. Patient denies any chest pain. 2D echocardiogram reviewed as above. Patient is on IV heparin. #3 newly diagnosed type 2 diabetes mellitus: Blood sugar has been in the range of 300-400. Hemoglobin A1c was 10. Patient is on sliding scale only. Plan: Start Levemir insulin 10 units twice daily, continue sliding scale and Accu- Cheks. #4 hypertension: Continue lisinopril, blood pressure stable. #5 suspected obstructive sleep apnea: Reportedly, mentioned that he has been having apneic episodes during sleep. Patient will need sleep study as outpatient. #6 DVT prophylaxis: He is on IV heparin drip. This note was generated with [employer] software. It may contain incorrect words, spelling, and punctuation that were not noted in checking the note before signing. Code Visit Inpatient E&M: 44951 Subs Hosp L3
--- NOTE | 2017-11-14 09:16 | CASEMGMT ---
CHART REVIEW: LILI Strata: 1 ADM Dx: Pulmonary Emboli Assessment: Per physician report, This is a 42 year old male patient who presented to the ED because of shortness of breath and syncopal episode, found to have extensive bilateral pulmonary emboli complicated by acute non-ST elevation [place] and also was diagnosed with type 2 diabetes mellitus. Treatment Plan: Heparin gtt, hypercoagulable workup including protein C, protein S, Factor V Leiden, anti-thrombin 3, anticqardiolipin, 2D echo, start levemir, continue sliding scal, continue lisinopril, suspect obstructive sleep apnea, will need sleep study as outpatient, cardiology not consulted as of 11/14/17. Transition Planning/Care Coordination: RN CM will need to follow hospital course to determine transition needs. Patient will likely need follow-up appnts, po anticoagulation, and diabetes resources. The patient is established with Dr. Mandujano for PCP and does not see any specialists. The patient is independent, , employed outside the home, and does not use or own DME. Vera Rod, BSN, RN-BC, CCM
[2017-11-14 11:25] LABS: Partial Thromboplast Time 41.9 Seconds (24.1-36.2)
[2017-11-14 11:35] LABS: Bedside Glucose 326 mg/dL (70-110)
--- NOTE | 2017-11-14 15:09 | CHAPLAIN ---
Type of Pastoral Visit _x__ Initial Visit ___ Follow-up Visit ___ On-call Visit ___ General Patient Visit ___ Spiritual Assessment ___ Family Conference ___ Bereavement ___ Rapid Response ___ Code Blue ___ Other (describe below) Pastoral Care Referral From _x__ Patient ___ Family ___ Nurse ___ Physician ___ Recordist Chief ___ Recyclable Materials Distributor ___ Other (describe below) Sacrament/Intervention _x__ Active listening ___ Anointing ___ Congregational ___ Bereavement ___ Communion ___ Leonora exploration ___ ___ Life review _x__ Prayer ___ Reconciliation ___ Sacrament of Sick ___ Supportive presence ___ Wedding ___ Other (describe below) Pastoral Comments
[2017-11-14 16:35] LABS: Bedside Glucose 296 mg/dL (70-110)
[2017-11-14 18:56] LABS: Partial Thromboplast Time 44.7 Seconds (24.1-36.2)
--- NOTE | 2017-11-14 19:25 | NURSING ---
PTT resulted at this time, corrective action followed per MAR.
[2017-11-14 22:05] LABS: Bedside Glucose 296 mg/dL (70-110)
[2017-11-15] VITALS (10 sets, daily range): BP systolic 107–137; BP diastolic 72–87; PULSE 93–114; RESP 16–18; TEMP 36.8–37.3; O2SAT 96–97
[2017-11-15 01:58] LABS: Partial Thromboplast Time 51.3 Seconds (24.1-36.2)
--- NOTE | 2017-11-15 03:55 | NURSING ---
PTT result not called to the floor during down time, RN unaware of results until 353, will follow MAR for corrective action.
[2017-11-15 06:51] LABS: Bedside Glucose 310 mg/dL (70-110)
[2017-11-15] MEDS: HEPARIN/D5w 25,000 UNITS 25,000 UNITS/250 ML IV.SOLN. 20 UNITS IV ×2 (07:03→17:00)
--- NOTE | 2017-11-15 08:23 | PCM.PROGNOTE ---
Patient Problems: Active and Suspected Problems Pulmonary embolism (Acute) NSTEMI (non-ST elevated myocardial infarction) (Acute) Subjective: Chief complaint: Follow-up after admission for extensive bilateral mammary emboli, acute non-ST elevation [place] and newly diagnosed type 2 diabetes mellitus. Patient seen and examined. No acute events overnight. Today, he complained of shortness of breath upon ambulation. At rest, he is fine. He denied chest pain, palpitation, dizziness or lightheadedness. All over, he is feeling a little bit better. He is afebrile, heart rate has been around 90-100, blood pressure stable, pulse ox is normal on room air. - Physical Exam General: Alert, Oriented x3, Cooperative, No apparent distress HEENT: Atraumatic, PERRLA, EOMI Oral: Moist Mucosa, No Gingival or Mucosal Lesions/ Ulcerations Neck: Supple, No JVD, Negative Carotid Bruits, Trachea Midline, Thyroid Normal Size and Texture Lungs: Clear to auscultation, No rhonchi, No wheeze, No rales, Diminished Cardiovascular: Regular rate, Regular Rhythm, Normal S1, Normal S2, No murmurs, Tachycardic Abdomen: Bowel Sounds Present, Soft, Non Tender, Non-Distended, No Hepato-splenomegaly, Obese Extremities: No clubbing, No cyanosis, No edema Skin: No rashes, No breakdown Lymphatic: No Cervical, Supraclavicular, or Inguinal Adenopathy Neurological: Cranial nerves II-XII grossly intact, Motor Exam 5/5 strength throughout Psych/Mental Status: Normal Affect, Appropriate, Alert and oriented to time, place, person, mood and affect Vital Signs Temp Pulse Resp BP Pulse Ox 98.4 F 101 H 18 111/87 H 96 11/15/17 03:00 11/15/17 06:54 11/15/17 03:00 11/15/17 03:00 11/15/17 03:00 Oxygen Delivery Method Room Air Weight: 346 lb 5.539 oz Body Mass Index (BMI) 45.6 Intake and Output for Last 24 Hours 11/13/17 11/14/17 11/15/17 23:59 23:59 23:59 Intake Total 59.4 / 59.4 3848 / 3848 1573 / 1573 Output Total 1400 / 1400 750 / 750 Balance 59.4 / 59.4 2448 / 2448 823 / 823 Laboratory Tests Past 24 Hrs 11/14/17 11/14/17 11/14/17 11:00 11:00 11:00 APTT 41.9 H Protein C Antigen Pending Prot C Funct Activity Pending Functional Protein S Pending Free Protein S Pending Total Protein S Pending Func Antithrombin III Pending Factor V Leiden Mutat Pending Beta-2-GPI IgG Ab Pending Beta-2-GPI IgA Ab Pending Beta-2-GPI IgM Ab Pending Anti-Cardiolipin IgG Ab Pending Anti-Cardiolipin IgM Ab Pending 11/14/17 11/15/17 17:56 01:05 APTT 44.7 H 51.3 H Protein C Antigen Prot C Funct Activity Functional Protein S Free Protein S Total Protein S Func Antithrombin III Factor V Leiden Mutat Beta-2-GPI IgG Ab Beta-2-GPI IgA Ab Beta-2-GPI IgM Ab Anti-Cardiolipin IgG Ab Anti-Cardiolipin IgM Ab POC Glucose 11/15/17 11/14/17 11/14/17 06:45 20:58 16:33 POC Glucose 310 H 296 H 296 H 11/14/17 11:29 POC Glucose 326 H Medical Necessity - Tobacco Use Smoking Status: Never smoker Tobacco Use: Non-smoker Assessment/Plan Active and Suspected Problems Pulmonary embolism (Acute) NSTEMI (non-ST elevated myocardial infarction) (Acute) This is a 42 years old male patient presented to the emergency department because of shortness of breath and syncopal episode, found to have extensive bilateral pulmonary emboli that complicated by acute non-ST elevation [place] and also was diagnosed with type 2 diabetes mellitus. #1 acute extensive bilateral pulmonary emboli: Remained on IV heparin drip. His heart rate has been coming down, around 100, blood pressure stable, and pulse ox is normal on room air. Hypercoagulability workup is pending. 2D echocardiogram revealed normal LV size and function, moderately severe global right ventricular systolic dysfunction and severely dilated right ventricle. Routine blood work was remarkable for mild leukocytosis, otherwise normal. Plan: Continue same treatment. #2 acute non-ST elevation [place]: Likely because of demand ischemia secondary to massive PEs. EKG revealed sinus tachycardia. Troponin is borderline elevated and flat. Patient denies any chest pain. 2D echocardiogram reviewed as above. Patient is on IV heparin. #3 newly diagnosed type 2 diabetes mellitus: Blood sugar still in the range of 300s. Hemoglobin A1c was 10. He is on Levemir insulin twice daily that was started yesterday as well as insulin sliding scale. #4 hypertension: Continue lisinopril, blood pressure stable. #5 suspected obstructive sleep apnea: Recommend sleep study as outpatient. #6 DVT prophylaxis: He is on IV heparin drip. This note was generated with [employer] dictation software. It may contain incorrect words, spelling, and punctuation that were not noted in checking the note before signing. Code Visit Inpatient E&M: 93401 Subs Hosp L2
--- NOTE | 2017-11-15 08:27 | PN_ITS ---
Patient Problems: Active and Suspected Problems Pulmonary embolism (Acute) NSTEMI (non-ST elevated myocardial infarction) (Acute) Subjective: Chief complaint: Follow-up after admission for extensive bilateral mammary emboli, acute non-ST elevation [place] and newly diagnosed type 2 diabetes mellitus. Patient seen and examined. No acute events overnight. Today, he complained of shortness of breath upon ambulation. At rest, he is fine. He denied chest pain , palpitation, dizziness or lightheadedness. All over, he is feeling a little bit better. He is afebrile, heart rate has been around 90-100, blood pressure stable, pulse ox is normal on room air. - Physical Exam General: Alert, Oriented x3, Cooperative, No apparent distress HEENT: Atraumatic, PERRLA, EOMI Oral: Moist Mucosa, No Gingival or Mucosal Lesions/ Ulcerations Neck: Supple, No JVD, Negative Carotid Bruits, Trachea Midline, Thyroid Normal Size and Texture Lungs: Clear to auscultation, No rhonchi, No wheeze, No rales, Diminished Cardiovascular: Regular rate, Regular Rhythm, Normal S1, Normal S2, No murmurs, Tachycardic Abdomen: Bowel Sounds Present, Soft, Non Tender, Non-Distended, No Hepato- splenomegaly, Obese Extremities: No clubbing, No cyanosis, No edema Skin: No rashes, No breakdown Lymphatic: No Cervical, Supraclavicular, or Inguinal Adenopathy Neurological: Cranial nerves II-XII grossly intact, Motor Exam 5/5 strength throughout Psych/Mental Status: Normal Affect, Appropriate, Alert and oriented to time, place, person, mood and affect Vital Signs Temp Pulse Resp BP Pulse Ox 98.4 F 101 H 18 111/87 H 96 11/15/17 03:00 11/15/17 06:54 11/15/17 03:00 11/15/17 03:00 11/15/17 03:00 Oxygen Delivery Method Room Air Weight: 346 lb 5.539 oz Body Mass Index (BMI) 45.6 Intake and Output for Last 24 Hours 11/13/17 11/14/17 11/15/17 23:59 23:59 23:59 Intake Total 59.4 / 59.4 3848 / 3848 1573 / 1573 Output Total 1400 / 1400 750 / 750 Balance 59.4 / 59.4 2448 / 2448 823 / 823 Laboratory Tests Past 24 Hrs 11/14/17 11/14/17 11/14/17 11:00 11:00 11:00 APTT 41.9 H Protein C Antigen Pending Prot C Funct Activity Pending Functional Protein S Pending Free Protein S Pending Total Protein S Pending Func Antithrombin III Pending Factor V Leiden Mutat Pending Beta-2-GPI IgG Ab Pending Beta-2-GPI IgA Ab Pending Beta-2-GPI IgM Ab Pending Anti-Cardiolipin IgG Ab Pending Anti-Cardiolipin IgM Ab Pending 11/14/17 11/15/17 17:56 01:05 APTT 44.7 H 51.3 H Protein C Antigen Prot C Funct Activity Functional Protein S Free Protein S Total Protein S Func Antithrombin III Factor V Leiden Mutat Beta-2-GPI IgG Ab Beta-2-GPI IgA Ab Beta-2-GPI IgM Ab Anti-Cardiolipin IgG Ab Anti-Cardiolipin IgM Ab POC Glucose 11/15/17 11/14/17 11/14/17 06:45 20:58 16:33 POC Glucose 310 H 296 H 296 H 11/14/17 11:29 POC Glucose 326 H Medical Necessity - Tobacco Use Smoking Status: Never smoker Tobacco Use: Non-smoker Assessment/Plan Active and Suspected Problems Pulmonary embolism (Acute) NSTEMI (non-ST elevated myocardial infarction) (Acute) This is a 42 years old male patient presented to the emergency department because of shortness of breath and syncopal episode, found to have extensive bilateral pulmonary emboli that complicated by acute non-ST elevation [place] and also was diagnosed with type 2 diabetes mellitus. #1 acute extensive bilateral pulmonary emboli: Remained on IV heparin drip. His heart rate has been coming down, around 100, blood pressure stable, and pulse ox is normal on room air. Hypercoagulability workup is pending. 2D echocardiogram revealed normal LV size and function, moderately severe global right ventricular systolic dysfunction and severely dilated right ventricle. Routine blood work was remarkable for mild leukocytosis, otherwise normal. Plan : Continue same treatment. #2 acute non-ST elevation [place]: Likely because of demand ischemia secondary to massive PEs. EKG revealed sinus tachycardia. Troponin is borderline elevated and flat. Patient denies any chest pain. 2D echocardiogram reviewed as above. Patient is on IV heparin. #3 newly diagnosed type 2 diabetes mellitus: Blood sugar still in the range of 300s. Hemoglobin A1c was 10. He is on Levemir insulin twice daily that was started yesterday as well as insulin sliding scale. #4 hypertension: Continue lisinopril, blood pressure stable. #5 suspected obstructive sleep apnea: Recommend sleep study as outpatient. #6 DVT prophylaxis: He is on IV heparin drip. This note was generated with [employer] dictation software. It may contain incorrect words, spelling, and punctuation that were not noted in checking the note before signing. Code Visit Inpatient E&M: 38505 Subs Hosp L2
[2017-11-15 10:09] LABS: Partial Thromboplast Time 47.9 Seconds (24.1-36.2)
--- NOTE | 2017-11-15 15:29 | CASEMGMT ---
Continued Stay Review 11/15/17 42 year old male adm for NSTEMI and bilateral pulmonary emboli continues inpatient medical management. Patient remains on IV hep gtt, continues to be tachycardic up to 140's with exertion, patient complains of shortness of breath with ambulation, hypercoagulability work-up is pending, 2D ECHO revealed moderately severe global right ventricular systolic dysfunction and severely dilated right ventricle. Patient blood sugars remain elevated in the 300 range despite Levemir BID and sliding scale, adjustments made. Vital Signs: 98.3 114 137/86 20 96% room air Heparin gtt @ 20 ml/h Levemir 10 Units SC BID Novolog Sliding Scale QACHS
[2017-11-15 17:56] LABS: Partial Thromboplast Time 47.9 Seconds (24.1-36.2)
[2017-11-15 18:06] LABS: Bedside Glucose 303 mg/dL (70-110)
[2017-11-15] MEDS: 0.9% NaCl Peripheral Flush Adult/Peds IV (18:16)
[2017-11-15 21:46] LABS: Bedside Glucose 274 mg/dL (70-110)
[2017-11-15] MEDS: MELATONIN 3 MG TABLET PO (22:12)
[2017-11-15 22:20] LABS: Bedside Glucose 270 mg/dL (70-110)
[2017-11-16] VITALS (10 sets, daily range): BP systolic 100–126; BP diastolic 64–79; PULSE 78–105; RESP 18–20; TEMP 36.5–37.1; O2SAT 94–99
[2017-11-16 00:59] LABS: Partial Thromboplast Time 54.8 Seconds (24.1-36.2)
[2017-11-16] MEDS: HEPARIN/D5w 25,000 UNITS 25,000 UNITS/250 ML IV.SOLN. 20 UNITS IV (01:36)
[2017-11-16 06:22] LABS: Absolute Neutrophil Count 5.2 X10^3/uL (2.0-7.7); Basophil# 0.03 X10^3/uL; Basophil% 0.4 % (0-1); Eosinophil# 0.12 X10^3/uL; Eosinophils% 1.4 % (0-5); Hematocrit 38.5 % (40-54); Hemoglobin 13.6 g/dl (13.0-16.5); Lymphocyte % 27.6 % (19-41); Mean Corp Hgb Conc 35.3 g/gl (32-36); Mean Corpuscular Hgb 28.6 pg (27.0-32.0); Mean Corpuscular Volume 80.9 fL (80-94); Mean Platelet Vol. 11.5 fl (6.2-12.0); Monocyte# 0.62 X10^3/uL; Monocyte% 7.5 % (0-10); Neutrophil # 5.18 X10^3/uL (2.7-7.7); Neutrophil % 62.3 % (47-70); Platelet Count 153 K/mm3 (150-450); RBC Distribution Width CV 14.1 % (11.6-14.6); Red Blood Count 4.76 M/mm3 (4.6-6.2); White Blood Count 8.3 K/mm3 (4.4-11.0)
[2017-11-16 06:27] LABS: POSITIVE COUNT NO; POSITIVE DIFFERENTIAL NO; POSITIVE MORPHOLOGY NO
[2017-11-16 06:42] LABS: Anion Gap 11 (5-15); BUN 16 mg/dL (7-18); BUN/Creat Ratio 17.2 RATIO (10-20); Calcium,Total 8.2 mg/dL (8.5-10.1); Chloride 98 mmol/L (98-107); Creatinine, Serum 0.93 mg/dL (0.70-1.30); EST Glomerular Filtration Rate 95 mL/min (>60); Est Glom Filt Rate - Afr Amer 115 mL/min (>60); Estimated Creatinine Clearance 118.13 ml/min; Glucose 228 mg/dL (74-106); Potassium 3.3 mmol/L (3.5-5.1); Sodium Level 133 mmol/L (136-145)
[2017-11-16 06:51] LABS: Bedside Glucose 266 mg/dL (70-110)
--- NOTE | 2017-11-16 07:56 | PCM.PROGNOTE ---
Patient Problems: Active and Suspected Problems Pulmonary embolism (Acute) NSTEMI (non-ST elevated myocardial infarction) (Acute) Subjective: Chief complaint: Follow-up after admission for extensive bilateral mammary emboli, acute non-ST elevation [place] and newly diagnosed type 2 diabetes mellitus. Patient seen and examined. No acute events overnight. He mentioned that his exertional shortness of breath has been improving slowly, less short of breath when he goes to the bathroom. Denied chest pain. Denied palpitation, dizziness or lightheadedness. Denied bleeding from any orifices. Vital signs are stable, heart rate has been down to 90s. - Physical Exam General: Alert, Oriented x3, Cooperative, No apparent distress HEENT: Atraumatic, PERRLA, EOMI Oral: Moist Mucosa, No Gingival or Mucosal Lesions/ Ulcerations Neck: Supple, No JVD, Negative Carotid Bruits, Trachea Midline, Thyroid Normal Size and Texture Lungs: Clear to auscultation, No rhonchi, No wheeze, No rales, Diminished Cardiovascular: Regular rate, Regular Rhythm, Normal S1, Normal S2, No murmurs Abdomen: Bowel Sounds Present, Soft, Non Tender, Non-Distended, No Hepato-splenomegaly, Obese Extremities: No clubbing, No cyanosis, No edema Skin: No rashes, No breakdown Lymphatic: No Cervical, Supraclavicular, or Inguinal Adenopathy Neurological: Cranial nerves II-XII grossly intact, Neuro grossly intact Psych/Mental Status: Normal Affect, Appropriate, Alert and oriented to time, place, person, mood and affect Vital Signs Temp Pulse Resp BP Pulse Ox 97.9 F 95 18 100/64 94 11/16/17 04:00 11/16/17 04:00 11/16/17 04:00 11/16/17 04:00 11/16/17 04:00 Oxygen Delivery Method Room Air Weight: 346 lb 5.539 oz Body Mass Index (BMI) 45.6 Intake and Output for Last 24 Hours 11/14/17 11/15/17 11/16/17 23:59 23:59 23:59 Intake Total 3848 / 3848 3427 / 3427 679 / 679 Output Total 1400 / 1400 1650 / 1650 300 / 300 Balance 2448 / 2448 1777 / 1777 379 / 379 Laboratory Tests Past 24 Hrs 11/15/17 11/15/17 11/16/17 09:45 17:04 00:30 WBC RBC Hgb Hct MCV MCH MCHC RDW RDW Differential Plt Count MPV Immature Gran % (Auto) Neut % (Auto) Lymph % (Auto) [place] % (Auto) Eos % (Auto) Baso % (Auto) Absolute Neuts (auto) Absolute Lymphs (auto) Total Counted APTT 47.9 H 47.9 H 54.8 H Sodium Potassium Chloride Carbon Dioxide Anion Gap BUN Creatinine Estim Creat Clear Calc Est GFR (MDRD) Af Amer Est GFR (MDRD) Non-Af BUN/Creatinine Ratio Glucose Calcium 11/16/17 11/16/17 11/16/17 06:05 06:05 06:05 WBC 8.3 RBC 4.76 Hgb 13.6 Hct 38.5 L MCV 80.9 MCH 28.6 MCHC 35.3 RDW 14.1 RDW Differential 40.0 Plt Count 153 MPV 11.5 Immature Gran % (Auto) 0.800 Neut % (Auto) 62.3 Lymph % (Auto) 27.6 [place] % (Auto) 7.5 Eos % (Auto) 1.4 Baso % (Auto) 0.4 Absolute Neuts (auto) 5.2 Absolute Lymphs (auto) 2.30 Total Counted Not Reportable APTT 57.0 H Sodium 133 L Potassium 3.3 L Chloride 98 Carbon Dioxide 24.0 Anion Gap 11 BUN 16 Creatinine 0.93 Estim Creat Clear Calc 118.13 Est GFR (MDRD) Af Amer 115 Est GFR (MDRD) Non-Af 95 BUN/Creatinine Ratio 17.2 Glucose 228 H Calcium 8.2 L POC Glucose 11/16/17 11/15/17 11/15/17 06:44 22:10 17:53 POC Glucose 266 H 270 H 303 H 11/15/17 11:43 POC Glucose 274 H Medical Necessity - Tobacco Use Smoking Status: Never smoker Tobacco Use: Non-smoker Assessment/Plan Active and Suspected Problems Pulmonary embolism (Acute) NSTEMI (non-ST elevated myocardial infarction) (Acute) This is a 42 years old male patient presented to the emergency department because of shortness of breath and syncopal episode, found to have extensive bilateral pulmonary emboli that complicated by acute non-ST elevation [place] and also was diagnosed with type 2 diabetes mellitus. #1 acute extensive bilateral pulmonary emboli: Remained on IV heparin drip. Vital signs stabilized, heart rate is down to 90s, blood pressure stable. Pulse ox is normal on room air. Hypercoagulability workup is pending. 2D echocardiogram revealed normal LV size and function, moderately severe global right ventricular systolic dysfunction and severely dilated right ventricle. Repeat routine blood work was remarkable for mild hypokalemia and hyponatremia. Plan: DC IV heparin drip, start Lovenox twice daily at 10 AM this morning, replace potassium, anticipate discharge home tomorrow #2 acute non-ST elevation [place]:, It is secondary to demand ischemia due to massive PEs. Troponin is borderline elevated and flat. Patient denies any chest pain. 2D echocardiogram reviewed as above. #3 newly diagnosed type 2 diabetes mellitus: Blood sugar still in the range of 100-300. Hemoglobin A1c was 10. He is on Levemir insulin twice daily that was started yesterday as well as insulin sliding scale. Plan to increase Levemir to 12 units twice daily. #4 hypertension: Continue lisinopril, blood pressure stable. #5 suspected obstructive sleep apnea: Recommend sleep study as outpatient. #6 DVT prophylaxis: Start Lovenox twice daily therapeutic dose. This note was generated with [employer] dictation software. It may contain incorrect words, spelling, and punctuation that were not noted in checking the note before signing. Code Visit Inpatient E&M: 01763 Subs Hosp L2
--- NOTE | 2017-11-16 08:02 | PN_ITS ---
Patient Problems: Active and Suspected Problems Pulmonary embolism (Acute) NSTEMI (non-ST elevated myocardial infarction) (Acute) Subjective: Chief complaint: Follow-up after admission for extensive bilateral mammary emboli, acute non-ST elevation [place] and newly diagnosed type 2 diabetes mellitus. Patient seen and examined. No acute events overnight. He mentioned that his exertional shortness of breath has been improving slowly, less short of breath when he goes to the bathroom. Denied chest pain. Denied palpitation, dizziness or lightheadedness. Denied bleeding from any orifices. Vital signs are stable, heart rate has been down to 90s. - Physical Exam General: Alert, Oriented x3, Cooperative, No apparent distress HEENT: Atraumatic, PERRLA, EOMI Oral: Moist Mucosa, No Gingival or Mucosal Lesions/ Ulcerations Neck: Supple, No JVD, Negative Carotid Bruits, Trachea Midline, Thyroid Normal Size and Texture Lungs: Clear to auscultation, No rhonchi, No wheeze, No rales, Diminished Cardiovascular: Regular rate, Regular Rhythm, Normal S1, Normal S2, No murmurs Abdomen: Bowel Sounds Present, Soft, Non Tender, Non-Distended, No Hepato- splenomegaly, Obese Extremities: No clubbing, No cyanosis, No edema Skin: No rashes, No breakdown Lymphatic: No Cervical, Supraclavicular, or Inguinal Adenopathy Neurological: Cranial nerves II-XII grossly intact, Neuro grossly intact Psych/Mental Status: Normal Affect, Appropriate, Alert and oriented to time, place, person, mood and affect Vital Signs Temp Pulse Resp BP Pulse Ox 97.9 F 95 18 100/64 94 11/16/17 04:00 11/16/17 04:00 11/16/17 04:00 11/16/17 04:00 11/16/17 04:00 Oxygen Delivery Method Room Air Weight: 346 lb 5.539 oz Body Mass Index (BMI) 45.6 Intake and Output for Last 24 Hours 11/14/17 11/15/17 11/16/17 23:59 23:59 23:59 Intake Total 3848 / 3848 3427 / 3427 679 / 679 Output Total 1400 / 1400 1650 / 1650 300 / 300 Balance 2448 / 2448 1777 / 1777 379 / 379 Laboratory Tests Past 24 Hrs 11/15/17 11/15/17 11/16/17 09:45 17:04 00:30 WBC RBC Hgb Hct MCV MCH MCHC RDW RDW Differential Plt Count MPV Immature Gran % (Auto) Neut % (Auto) Lymph % (Auto) [place] % (Auto) Eos % (Auto) Baso % (Auto) Absolute Neuts (auto) Absolute Lymphs (auto) Total Counted APTT 47.9 H 47.9 H 54.8 H Sodium Potassium Chloride Carbon Dioxide Anion Gap BUN Creatinine Estim Creat Clear Calc Est GFR (MDRD) Af Amer Est GFR (MDRD) Non-Af BUN/Creatinine Ratio Glucose Calcium 11/16/17 11/16/17 11/16/17 06:05 06:05 06:05 WBC 8.3 RBC 4.76 Hgb 13.6 Hct 38.5 L MCV 80.9 MCH 28.6 MCHC 35.3 RDW 14.1 RDW Differential 40.0 Plt Count 153 MPV 11.5 Immature Gran % (Auto) 0.800 Neut % (Auto) 62.3 Lymph % (Auto) 27.6 [place] % (Auto) 7.5 Eos % (Auto) 1.4 Baso % (Auto) 0.4 Absolute Neuts (auto) 5.2 Absolute Lymphs (auto) 2.30 Total Counted Not Reportable APTT 57.0 H Sodium 133 L Potassium 3.3 L Chloride 98 Carbon Dioxide 24.0 Anion Gap 11 BUN 16 Creatinine 0.93 Estim Creat Clear Calc 118.13 Est GFR (MDRD) Af Amer 115 Est GFR (MDRD) Non-Af 95 BUN/Creatinine Ratio 17.2 Glucose 228 H Calcium 8.2 L POC Glucose 11/16/17 11/15/17 11/15/17 06:44 22:10 17:53 POC Glucose 266 H 270 H 303 H 11/15/17 11:43 POC Glucose 274 H Medical Necessity - Tobacco Use Smoking Status: Never smoker Tobacco Use: Non-smoker Assessment/Plan Active and Suspected Problems Pulmonary embolism (Acute) NSTEMI (non-ST elevated myocardial infarction) (Acute) This is a 42 years old male patient presented to the emergency department because of shortness of breath and syncopal episode, found to have extensive bilateral pulmonary emboli that complicated by acute non-ST elevation [place] and also was diagnosed with type 2 diabetes mellitus. #1 acute extensive bilateral pulmonary emboli: Remained on IV heparin drip. Vital signs stabilized, heart rate is down to 90s, blood pressure stable. Pulse ox is normal on room air. Hypercoagulability workup is pending. 2D echocardiogram revealed normal LV size and function, moderately severe global right ventricular systolic dysfunction and severely dilated right ventricle. Repeat routine blood work was remarkable for mild hypokalemia and hyponatremia. Plan: DC IV heparin drip, start Lovenox twice daily at 10 AM this morning, replace potassium, anticipate discharge home tomorrow #2 acute non-ST elevation [place]:, It is secondary to demand ischemia due to massive PEs. Troponin is borderline elevated and flat. Patient denies any chest pain. 2D echocardiogram reviewed as above. #3 newly diagnosed type 2 diabetes mellitus: Blood sugar still in the range of 100-300. Hemoglobin A1c was 10. He is on Levemir insulin twice daily that was started yesterday as well as insulin sliding scale. Plan to increase Levemir to 12 units twice daily. #4 hypertension: Continue lisinopril, blood pressure stable. #5 suspected obstructive sleep apnea: Recommend sleep study as outpatient. #6 DVT prophylaxis: Start Lovenox twice daily therapeutic dose. This note was generated with [employer] dictation software. It may contain incorrect words, spelling, and punctuation that were not noted in checking the note before signing. Code Visit Inpatient E&M: 37774 Subs Hosp L2
[2017-11-16] MEDS: Enoxaparin 80 MG/0.8 ML Syringe 160 MG SC ×2 (09:08→18:11)
[2017-11-16] MEDS: 0.9% NaCl Peripheral Flush Adult/Peds IV (09:09)
[2017-11-16 11:21] LABS: Bedside Glucose 250 mg/dL (70-110)
[2017-11-16 12:41] LABS: Protein S, Free 116 % (57-157); Protein S, Funtional 82 % (63-140); Protein S, Total 83 % (60-150)
[2017-11-16 17:16] LABS: Bedside Glucose 228 mg/dL (70-110)
[2017-11-16] MEDS: MELATONIN 3 MG TABLET PO (22:25)
[2017-11-16 22:45] LABS: Bedside Glucose 246 mg/dL (70-110)
[2017-11-17 02:43] VITALS: BP 121/80; PULSE 83; RESP 16; TEMP 36.5; O2SAT 98
[2017-11-17 03:38] VITALS: PULSE 86
[2017-11-17] MEDS: Enoxaparin 80 MG/0.8 ML Syringe 160 MG SC (06:45)
[2017-11-17 07:10] LABS: Bedside Glucose 207 mg/dL (70-110)
[2017-11-17 07:11] VITALS: PULSE 80
--- NOTE | 2017-11-17 08:04 | DCINST_ITS ---
- Discharge Diagnoses Current Active Problems: Current Active and Chronic Problems Pulmonary embolism (Acute) NSTEMI (non-ST elevated myocardial infarction) (Acute) DM2 (diabetes mellitus, type 2) (Chronic) Morbid obesity (Chronic) Hypertension (Chronic) You will use the following diet at home:: Calorie/Carbohydrate Controlled ( specify 1200, 1400, etc) - 1800 lisa. Your food should be the consistency of: Regular Discharge Activity: Return to Normal Activity Return to work on:: 11/27/17 Weight Bearing Status: Weight bearing as tolerated Call your doctor if you observe: Fever of 101 or Higher, Shortness of breath, Dizziness, Fainting spells, Chest pain, Increased palpitations (irregular heartbeat), Uncontrolled pain Instructions: Discharge Instructions for Pulmonary Embolism, Apixaban Oral tablet, Using a Blood Sugar Log, Hyperglycemia (High Blood Sugar), Hypoglycemia (Low Blood Sugar), How to Check Your Blood Sugar Allergies/Adverse Reactions: Allergies No Known Allergies Allergy (Verified 11/13/17 15:06) Medications to take at Discharge Lisinopril [Zestril] 10 mg PO DAILY 11/13/17 Apixaban [Eliquis] 5 mg PO BID #90 tab 11/16/17 Insulin Detemir [Levemir FlexPen] 12 units SC BID #2 insuln.pen 11/17/17 Metformin HCl 500 mg PO BID #30 tab 11/17/17 The following prescriptions were given: Apixaban [Eliquis] 5 mg PO BID #90 tab Insulin Detemir [Levemir FlexPen] 12 units SC BID #2 insuln.pen Metformin HCl 500 mg PO BID #30 tab Primary Care Physician: Levi Mandujano [Primary Care Provider] - Please follow up with your Primary Care Physician in: 1 week.
--- NOTE | 2017-11-17 08:52 | CASEMGMT ---
ANGUS GUIDRY provided patient with [employer] co-pay card with instructions to activate. ANGUS GUIDRY also spoke to patient re: diabetes testing supplies, insulin and needles. Instructed patient to contact his insurance company to ensure testing supplies were covered under his pharmacy benefit vs. medical benefit. Provided education on DME providers in his area in the event supplies are covered under his medical benefit. Patient voiced understanding and explained back to this case managers how to obtain diabetes testing supplies. SHIELA LizN, RN-BC, CCM
[2017-11-17 09:11] VITALS: BP 127/55; PULSE 85; RESP 18; TEMP 37.1; O2SAT 96
--- NOTE | 2017-11-17 13:22 | PCM.DC.SUM ---
Discharge Date and Diagnosis Date of Admission: 11/13/17 Date of Discharge: 11/17/17 - Primary Discharge Diagnosis #1 acute extensive bilateral pulmonary emboli, unprovoked. #2 acute non-ST elevation SC. #3 newly diagnosed type 2 diabetes mellitus. #4 suspected obstructive sleep apnea. - Secondary Discharge Diagnosis Chronic Problems DM2 (diabetes mellitus, type 2) (Chronic) Morbid obesity (Chronic) Hypertension (Chronic) Hospital Course and Treatment Imaging Results: Clinical Impression(s) from Imaging Studies Chest CTA 11/13/17 15:21 IMPRESSION: Extensive bilateral pulmonary emboli as detailed above involving both the distal pulmonary arteries branches of the upper and lower lobe pulmonary arteries. Right lower lobe interstitial nodular infiltrate. Lingular interstitial nodular infiltrates. N.B. : The above information has been verbally conveyed by Ladan Zabala MD to Dr. Noel Hernández, Referring Physician, on 11/13/2017 16:21:46 (ET). Electronically Signed: Ladan Zabala MD at 16:20 EDT Tel , Service support , N.B. : The above information has been verbally conveyed by Ladan Zabala MD to Dr. Noel Hernández, Referring Physician, on 11/13/2017 16:21:46 (ET). Operations: None Procedures: 2-D Echocardiogram, EKG Summary of Care Provided: Patient seen and examined on the day of discharge and appeared to be stable to be discharged home. Shortness of breath has been improving every day. He denied any other complaints. Vital signs are stable. - Physical Exam General: Alert, Oriented x3, Cooperative, No apparent distress. HEENT: Atraumatic, PERRLA, EOMI. Neck: Supple, No JVD, Negative Carotid Bruits, Trachea Midline, Thyroid Normal. Lungs: Clear to auscultation, Normal air movement, No rhonchi, No wheeze, No rales. Cardiovascular: Regular rate, Regular Rhythm, Normal S1, Normal S2, PMI Normal. Abdomen: Bowel Sounds Present, Soft, Non Tender, Non-Distended, No Hepato-splenomegaly. Extremities: No clubbing, No cyanosis, No edema Skin: No rashes, No breakdown Neurological: Neuro grossly intact Vital Signs are stable. Hospital course: This is a 42 years old male patient presented to the emergency department because of shortness of breath and syncopal episode, found to have extensive bilateral pulmonary emboli that complicated by acute non-ST elevation SC and also was diagnosed with type 2 diabetes mellitus. #1 acute extensive bilateral pulmonary emboli: Initially, treated with IV heparin drip for 3 days and then switched to therapeutic Lovenox injections twice daily. This was unprovoked and patient had no risk factors for blood clots. Hypercoagulability workup sent and was pending at the time of discharge. 2D echocardiogram revealed normal LV size and function, moderately severe global right ventricular systolic dysfunction and severely dilated right ventricle. On the day of discharge, patient was started on Eliquis and he was discharged home. #2 acute non-ST elevation SC:, It is secondary to demand ischemia due to massive PEs. Troponin is borderline elevated and flat. Patient denies any chest pain. 2D echocardiogram reviewed as above. #3 newly diagnosed type 2 diabetes mellitus: Initially, blood sugar was up to 400s. Hemoglobin A1c was 10. He was started on Levemir insulin twice daily and sliding scale. Blood sugar improved and came down to 200s. Patient discharged home on Levemir insulin 12 units twice daily and metformin 500 mg p.o. twice daily, instructions given to check his blood sugar at least 3-4 times daily, follow-up with PCP in 1 week. #4 hypertension: Blood pressure remained stable, continued on lisinopril. #5 suspected obstructive sleep apnea: Recommend sleep study as outpatient. Patient discharged home in a stable medical condition, discharged on Eliquis twice daily for at least 6 months, discharged on Levemir insulin twice daily, metformin, continued on lisinopril, patient will need follow-up to the echocardiogram because of moderately severe global right ventricular systolic dysfunction which is secondary to extensive bilateral PEs, recommended follow-up with PCP in 1 week and patient will probably need sleep study as outpatient. This note was generated with [employer] dictation software. It may contain incorrect words, spelling, and punctuation that were not noted in checking the note before signing. Discharge Activity: Return to Normal Activity Return to work on:: 11/27/17 Weight Bearing Status: Weight bearing as tolerated Call your doctor if you observe: Fever of 101 or Higher, Shortness of breath, Dizziness, Fainting spells, Chest pain, Increased palpitations (irregular heartbeat), Uncontrolled pain Home Medications: Medications to take at Discharge Lisinopril [Zestril] 10 mg PO DAILY 11/13/17 Apixaban [Eliquis] 5 mg PO BID #90 tab 11/16/17 Insulin Detemir [Levemir FlexPen] 12 units SC BID #2 insuln.pen 11/17/17 Metformin HCl 500 mg PO BID #30 tab 11/17/17 Following Prescrptions Were Given to Patient: Apixaban [Eliquis] 5 mg PO BID #90 tab Insulin Detemir [Levemir FlexPen] 12 units SC BID #2 insuln.pen Metformin HCl 500 mg PO BID #30 tab Primary Care Physician: Levi Mandujano [Primary Care Provider] - Please follow up with your Primary Care Physician in: 1 week. Please Follow Up With: Levi Mandujano Patient Instructions: Apixaban Oral tablet, Using a Blood Sugar Log, Hyperglycemia (High Blood Sugar), Hypoglycemia (Low Blood Sugar), How to Check Your Blood Sugar, Discharge Instructions for Pulmonary Embolism Disposition: Home Minutes spent on discharge:: 34 Patient Condition:: Stable Medical Necessity - Tobacco Use Smoking Status: Never smoker Tobacco Use: Non-smoker Meaningful Use Info Meaningful Use Diagnoses (Choose all that apply): None applicable Code Visit Inpatient E&M: 28699 Disch Hosp
--- NOTE | 2017-11-17 13:28 | DS.PCM_ITS ---
Discharge Date and Diagnosis Date of Admission: 11/13/17 Date of Discharge: 11/17/17 - Primary Discharge Diagnosis #1 acute extensive bilateral pulmonary emboli, unprovoked. #2 acute non-ST elevation IN. #3 newly diagnosed type 2 diabetes mellitus. #4 suspected obstructive sleep apnea. - Secondary Discharge Diagnosis Chronic Problems DM2 (diabetes mellitus, type 2) (Chronic) Morbid obesity (Chronic) Hypertension (Chronic) Hospital Course and Treatment Imaging Results: Clinical Impression(s) from Imaging Studies Chest CTA 11/13/17 15:21 IMPRESSION: Extensive bilateral pulmonary emboli as detailed above involving both the distal pulmonary arteries branches of the upper and lower lobe pulmonary arteries. Right lower lobe interstitial nodular infiltrate. Lingular interstitial nodular infiltrates. N.B. : The above information has been verbally conveyed by Ladan Zabala MD to Dr. Noel Hernández, Referring Physician, on 11/13/2017 16:21:46 (ET). Electronically Signed: Ladan Zabala MD at 16:20 EDT Tel , Service support , N.B. : The above information has been verbally conveyed by Ladan Zabala MD to Dr. Noel Hernández, Referring Physician, on 11/13/2017 16:21:46 (ET). Operations: None Procedures: 2-D Echocardiogram, EKG Summary of Care Provided: Patient seen and examined on the day of discharge and appeared to be stable to be discharged home. Shortness of breath has been improving every day. He denied any other complaints. Vital signs are stable. - Physical Exam General: Alert, Oriented x3, Cooperative, No apparent distress. HEENT: Atraumatic, PERRLA, EOMI. Neck: Supple, No JVD, Negative Carotid Bruits, Trachea Midline, Thyroid Normal. Lungs: Clear to auscultation, Normal air movement, No rhonchi, No wheeze, No rales. Cardiovascular: Regular rate, Regular Rhythm, Normal S1, Normal S2, PMI Normal. Abdomen: Bowel Sounds Present, Soft, Non Tender, Non-Distended, No Hepato- splenomegaly. Extremities: No clubbing, No cyanosis, No edema Skin: No rashes, No breakdown Neurological: Neuro grossly intact Vital Signs are stable. Hospital course: This is a 42 years old male patient presented to the emergency department because of shortness of breath and syncopal episode, found to have extensive bilateral pulmonary emboli that complicated by acute non-ST elevation [place] and also was diagnosed with type 2 diabetes mellitus. #1 acute extensive bilateral pulmonary emboli: Initially, treated with IV heparin drip for 3 days and then switched to therapeutic Lovenox injections twice daily. This was unprovoked and patient had no risk factors for blood clots. Hypercoagulability workup sent and was pending at the time of discharge. 2D echocardiogram revealed normal LV size and function, moderately severe global right ventricular systolic dysfunction and severely dilated right ventricle. On the day of discharge, patient was started on Eliquis and he was discharged home. #2 acute non-ST elevation IN:, It is secondary to demand ischemia due to massive PEs. Troponin is borderline elevated and flat. Patient denies any chest pain. 2D echocardiogram reviewed as above. #3 newly diagnosed type 2 diabetes mellitus: Initially, blood sugar was up to 400s. Hemoglobin A1c was 10. He was started on Levemir insulin twice daily and sliding scale. Blood sugar improved and came down to 200s. Patient discharged home on Levemir insulin 12 units twice daily and metformin 500 mg p.o. twice daily, instructions given to check his blood sugar at least 3-4 times daily, follow-up with PCP in 1 week. #4 hypertension: Blood pressure remained stable, continued on lisinopril. #5 suspected obstructive sleep apnea: Recommend sleep study as outpatient. Patient discharged home in a stable medical condition, discharged on Eliquis twice daily for at least 6 months, discharged on Levemir insulin twice daily, metformin, continued on lisinopril, patient will need follow-up to the echocardiogram because of moderately severe global right ventricular systolic dysfunction which is secondary to extensive bilateral PEs, recommended follow- up with PCP in 1 week and patient will probably need sleep study as outpatient. This note was generated with [employer] dictation software. It may contain incorrect words, spelling, and punctuation that were not noted in checking the note before signing. Discharge Activity: Return to Normal Activity Return to work on:: 11/27/17 Weight Bearing Status: Weight bearing as tolerated Call your doctor if you observe: Fever of 101 or Higher, Shortness of breath, Dizziness, Fainting spells, Chest pain, Increased palpitations (irregular heartbeat), Uncontrolled pain Home Medications: Medications to take at Discharge Lisinopril [Zestril] 10 mg PO DAILY 11/13/17 Apixaban [Eliquis] 5 mg PO BID #90 tab 11/16/17 Insulin Detemir [Levemir FlexPen] 12 units SC BID #2 insuln.pen 11/17/17 Metformin HCl 500 mg PO BID #30 tab 11/17/17 Following Prescrptions Were Given to Patient: Apixaban [Eliquis] 5 mg PO BID #90 tab Insulin Detemir [Levemir FlexPen] 12 units SC BID #2 insuln.pen Metformin HCl 500 mg PO BID #30 tab Primary Care Physician: Levi Mandujano [Primary Care Provider] - Please follow up with your Primary Care Physician in: 1 week. Please Follow Up With: Levi Mandujano Patient Instructions: Apixaban Oral tablet, Using a Blood Sugar Log, Hyperglycemia (High Blood Sugar), Hypoglycemia (Low Blood Sugar), How to Check Your Blood Sugar, Discharge Instructions for Pulmonary Embolism Disposition: Home Minutes spent on discharge:: 34 Patient Condition:: Stable Medical Necessity - Tobacco Use Smoking Status: Never smoker Tobacco Use: Non-smoker Meaningful Use Info Meaningful Use Diagnoses (Choose all that apply): None applicable Code Visit Inpatient E&M: 28722 Disch Hosp
[2017-11-20 14:07] LABS: Protein C Antigen 83 % (60-150); Protein C, Functional 111 % (73-180)
[2017-11-22 11:44] LABS: Anti-Cardiolipin Ab, IgG, Qn < 9 GPL U/mL (0-14); Anti-Cardiolipin Ab, IgM, Qn < 9 MPL U/mL (0-12); Antithrombin 3 Function 81 % (75-135); Beta-2-Glycoprotein I IgA <9 (0-25); Beta-2-Glycoprotein I IgG <9 (0-20); Beta-2-Glycoprotein I IgM <9 (0-32)
== END 2017-11-17 10:59 | disposition home or self-care (01) | DRG 175 ==
LOC: ED 16:29 → PCU 17:40
PROVIDERS: Family Medicine; Emergency Provider Emergency Medicine; Visit Provider Hospitalist
DX: I26.99 Other pulmonary embolism without acute cor pulmonale (principal); I21.A1 Myocardial infarction type 2; Z68.42 Body mass index [BMI] 45.0-49.9, adult; E66.01 Morbid (severe) obesity due to excess calories; I10 Essential (primary) hypertension; E11.9 Type 2 diabetes mellitus without complications; G47.33 Obstructive sleep apnea (adult) (pediatric)
CPT/HCPCS: 36415; 71275; 80048; 81241; 82962; 83036; 83880; 84484; 85025; 85027; 85300; 85302; 85303; 85305; 85306; 85610; 85730; 86146; 86147; 93005; 93308; 97803; 99251; 99285; J7030; Q9967; A4216; C8924; G0463; J2405

== ENCOUNTER 2018-01-03 22:01 | Emergency (ER) | payer BC, SELFPAY ==
[2018-01-03 22:01] VITALS: BP 163/88; PULSE 75; RESP 16; TEMP 36.8; O2SAT 100; BMI 43.7
--- NOTE | 2018-01-03 22:42 | EKG12_ITS ---
Test Reason : CP Blood Pressure : / mmHG Vent. Rate : 064 BPM Atrial Rate : 064 BPM P-R Int : 176 ms QRS Dur : 108 ms QT Int : 416 ms P-R-T Axes : 042 -04 022 degrees QTc Int : 429 ms Normal sinus rhythm Normal ECG Confirmed by JANICE MCGILL MD ([id number]), publication editor TG SETH ([id number]) on 01/05/2018 2:17:41 PM Referred By: GAIL Confirmed By:JANICE MCGILL MD
--- NOTE | 2018-01-03 22:42 | RAD_ITS ---
STUDY: X-RAY CHEST REASON FOR EXAM: Male, 42 years old. Chest pain TECHNIQUE: Single AP portable view of the chest. COMPARISON: None. FINDINGS: The lungs are clear and expanded. There is no demonstrated pleural abnormality. Normal size heart. Normal mediastinum and kassie. Normal visualized pulmonary arteries. Normal visualized aortic arch and descending thoracic aorta. Normal visualized thoracic spine. Normal visualized ribs, clavicles, and shoulders. There is no demonstrated abnormality of the visualized soft tissue structures of the upper abdomen. RAD/Chest 1 View (Portable) IMPRESSION: No acute cardiopulmonary disease. Electronically Signed: Lewis Shrestha DO at 23:11 EDT , Service support ,
--- NOTE | 2018-01-03 22:46 | US_ITS ---
STUDY: VENOUS DOPPLER ULTRASOUND - BILATERAL LOWER EXTREMITIES REASON FOR EXAM: Male, 42 years old. Bilateral lower extremity edema. TECHNIQUE: Ultrasound evaluation of the deep vein system to include delgado-scale imaging and compression was performed. Delgado-scale imaging and Doppler sonographic evaluation, including duplex spectral analysis and qualitative color flow sonography, was performed. COMPARISON: Prior comparable comparison studies are not available for review at this time. FINDINGS: RIGHT LEG Common Femoral Vein: Normal compression, spontaneity and augmentation. Normal color Doppler. Common Femoral Vein/Greater Saphenous Junction: Normal compression. Femoral Proximal: Normal compression. Femoral Middle: Normal compression, spontaneity and augmentation. Normal color Doppler. Femoral Distal: Normal compression. Popliteal Vein: Normal compression, spontaneity and augmentation. Normal color Doppler. Posterior Tibial Vein: Normal compression. Peroneal Vein: Normal compression. LEFT LEG Common Femoral Vein: Normal compression, spontaneity and augmentation. Normal color Doppler. Common Femoral Vein/Greater Saphenous Junction: Normal compression. Femoral Proximal: Normal compression. Femoral Middle: Normal compression, spontaneity and augmentation. Normal color Doppler. Femoral Distal: Normal compression. Popliteal Vein: Normal compression, spontaneity and augmentation. Normal color Doppler. Posterior Tibial Vein: Normal compression. Peroneal Vein: Normal compression. There is no demonstrated deep venous thrombosis. US/Venous Duplex Imag/Paulo Extrem IMPRESSION: No sonographic evidence for deep venous thrombosis of either common femoral, superficial femoral or popliteal veins. Electronically Signed: Shawanda Dodson MD at 1:57 EDT , Service support ,
[2018-01-03] MEDS: 0.9% Normal Saline 1,000 ML 1000 ML IV (23:47)
[2018-01-03 23:56] LABS: Absolute Lymphocyte Count 2.57 X10^3/ul (0.83-4.51); Absolute Neutrophil Count 6.3 X10^3/uL (2.0-7.7); Basophil# 0.02 X10^3/uL; Basophil% 0.2 % (0-1); Eosinophil# 0.18 X10^3/uL; Eosinophils% 1.9 % (0-5); Hematocrit 39.7 % (40-54); Hemoglobin 13.3 g/dl (13.0-16.5); Lymphocyte # 2.57 X10^3/ul (4.0); Lymphocyte % 26.5 % (19-41); Mean Corp Hgb Conc 33.5 g/gl (32-36); Mean Corpuscular Hgb 27.9 pg (27.0-32.0); Mean Corpuscular Volume 83.2 fL (80-94); Mean Platelet Vol. 10.9 fl (6.2-12.0); Monocyte# 0.64 X10^3/uL; Monocyte% 6.6 % (0-10); Neutrophil # 6.28 X10^3/uL (2.7-7.7); Neutrophil % 64.7 % (47-70); Platelet Count 213 K/mm3 (150-450); RBC Distribution Width CV 13.8 % (11.6-14.6); RBC Distribution Width SD 41.7 fl (35.1-43.9); Red Blood Count 4.77 M/mm3 (4.6-6.2); White Blood Count 9.7 K/mm3 (4.4-11.0)
[2018-01-04 00:01] VITALS: BP 118/67; PULSE 63; RESP 19; O2SAT 98
[2018-01-04 00:01] LABS: POSITIVE COUNT NO; POSITIVE DIFFERENTIAL NO; POSITIVE MORPHOLOGY NO
[2018-01-04 00:14] LABS: Anion Gap 6 (5-15); BUN 16 mg/dL (7-18); BUN/Creat Ratio 17.1 RATIO (10-20); Chloride 104 mmol/L (98-107); Creatinine, Serum 0.94 mg/dL (0.70-1.30); EST Glomerular Filtration Rate 94 mL/min (>60); Est Glom Filt Rate - Afr Amer 114 mL/min (>60); Estimated Creatinine Clearance 120.24 ml/min; Glucose 110 mg/dL (74-106); Potassium 3.4 mmol/L (3.5-5.1); Sodium Level 138 mmol/L (136-145)
--- NOTE | 2018-01-04 00:41 | ED.DCSUM_ITS ---
- ER Visit Summary Date of Service: 01/04/18 Chief Complaint: Chest pain History of Present Illness: The patient is a [address] Mandujano. 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 He had the abrupt onset of a pain in the left lower chest that radiated to the right side. He reports that the pain is now localized on the right. It is a dull pain that is 0 out of 10 currently and 10 out of 10 at worst. Is worsened by movement of his right arm or torso. Is relieved by remaining still. He does report that when the pain was severe that it made him short of breath. He denies any associated nausea, vomiting, or diaphoresis. The patient was diagnosed with PE November 13, 2017 with a large burden. He reports that he has been on Eliquis since that time. He has not missed any doses. Physical Examination: Vitals: Stable. Afebrile. General: Well-nourished and well-developed. Head: Normocephalic atraumatic. Neck: Supple, no lymphadenopathy. No JVD. Nontender. Cardiovascular: Regular rate and rhythm. No murmurs. Respiratory: No respiratory distress. Clear to auscultation bilaterally. Mild tenderness palpation to the lower ribs on the right does reproduce his pain. Abdominal: Soft, nontender, nondistended, normal bowel sounds. No guarding, rebound, or peritoneal signs. Back: Nontender. Extremities: Nontender, 1+ pitting edema of his lower extremities bilaterally. Skin: Normal color, no rash. Neurologic: Alert and oriented ?3. Cranial nerves II through XII are intact. Normal strength and sensation. Psych: Normal affect. Test Results: EKG is sinus at [address] changes. Bilateral lower extremity Dopplers are negative. Troponin was less than 0.015. CBC is remarkable for hematocrit of 39.7. Chem-7 is remarkable for potassium of 3.4 and glucose of 110. Chest x-ray is normal. Emergency Department Course and Treatment: Patient was treated with Tylenol and is resting comfortably. Treatment Plan: Patient's pain is reproduced with movement of his torso, arm, or palpation. He is on Eliquis and has negative lower extremity Dopplers. His vital signs are stable. I do not think that exposing him to the radiation of another CT of his chest is in his best interest and he agrees with this. He will be discharged instructions use Tylenol for pain. Follow-up his primary care physician 1-2 days if not improving. Return to the emergency department for any worsening symptoms. Disposition: To home in improved and stable condition. Impression: 1. Atypical chest pain. 2. History of PE. 3. Coagulopathy on Eliquis. This note was generated with [employer] dictation software. It may contain incorrect words, spelling, and punctuation that were not noted in review of the chart prior to signing ED Disposition - Plan for ED Patient: Disposition: Home or Assisted Living Chief Complaint: Chest Other Instructions: ED Chest Pain Atypical Unkn Cause Referrals: Levi Mandujano MD [Primary Care Provider] - 3-5 Days if not improving
[2018-01-04] MEDS: Acetaminophen 500 MG Tablet 1000 MG PO (01:07)
[2018-01-04] MEDS: HYDROcodone Bitartrate/Apap 5/325 Tablet PO (01:08)
[2018-01-04 01:09] VITALS: BP 120/70; PULSE 74; RESP 16; O2SAT 96
== END 2018-01-04 01:11 | disposition home or self-care (01) ==
PROVIDERS: Emergency Provider Emergency Medicine
DX: R07.89 Other chest pain (principal); D68.9 Coagulation defect, unspecified; I10 Essential (primary) hypertension; E11.9 Type 2 diabetes mellitus without complications; Z86.711 Personal history of pulmonary embolism; Z79.01 Long term (current) use of anticoagulants; Z79.4 Long term (current) use of insulin; Z79.899 Other long term (current) drug therapy
CPT/HCPCS: 71045; 80048; 84484; 85025; 93005; 93970; 96360; 99285; J7030; A4216

== ENCOUNTER → 2018-02-20 06:40 | Outpatient (CLI) | payer BC, SELFPAY ==
--- NOTE | 2018-02-20 06:47 | ECHOCS_ITS ---
Reason For Study: S/P MD Procedure This was a 2D Doppler, Color Flow transthoracic echocardiogram. The study was technically difficult. Contrast injection was performed. Exam performed in department. Left Ventricle Normal LV size. Left ventricular systolic function is normal. The estimated ejection fraction is 60 %. Normal diastology for age. No regional wall motion abnormalities noted. Right Ventricle Normal RV size. Normal systolic function. Atria The left atrium is mildly enlarged. Normal right atrium. No doppler evidence for ASD. Mitral Valve There is no mitral annular calcification. Normal mitral valve. Trivial mitral valve insufficiency. Tricuspid Valve Normal tricuspid valve. Trivial tricuspid valve insufficiency. Unable to estimate RV systolic pressure/pulmonary artery pressure due to technically difficult study. Aortic Valve The aortic valve is not well visualized. Pulmonic Valve The pulmonic valve is not well visualized. Great Vessels Normal sized aortic root. Pericardium/Pleural No pericardial effusion. Medication Diluted definity 2.0ml given slow IV push to enhance endocardial definition. MMode/2D Measurements & Calculations LVIDd: 5.3 cm IVSd: 1.2 cm LAV(MOD-bp): 75.4 ml LVIDs: 3.5 cm LVPWd: 1.1 cm LAV(MOD-bp) Indexed: 27.7 ml/m2 FS: 33.0 % LAV(MOD-sp2): 76.4 ml LAV(MOD-sp4): 75.0 ml LA A4 area: 23.3 cm2 RA A4 area: 17.3 cm2 Doppler Measurements & Calculations MV E max leonardo: 99.1 cm/sec Lat Peak E' Leonardo: 11.2 cm/sec Med Peak E' Leonardo: 9.6 cm/sec MV A max leonardo: 69.8 cm/sec E/E' lat: 8.8 E/E' med: 10.4 MV E/A: 1.4 Ao V2 max: 138.5 cm/sec LV V1 max: 125.3 cm/sec PA V2 max: 100.0 cm/sec Ao max P.7 mmHg LV V1 max P.3 mmHg Interpretation Summary The study was technically difficult. Contrast injection was performed. Left ventricular systolic function is normal. The estimated ejection fraction is 60 %. The left atrium is mildly enlarged. Trivial mitral valve insufficiency. Trivial tricuspid valve insufficiency. Unable to estimate RV systolic pressure/pulmonary artery pressure due to technically difficult study. Normal diastology for age. Ordering Physician: Ananda Espinal Referring Physician: Ananda Espinal Performed By: Karon Turner, LEATHA, RVT
--- NOTE | 2018-02-20 14:35 | STRESSREP ---
Stress Test Report Date: 02/20/2018 Procedure: Exercise tolerance test/imaging study Indications: Shortness of breath/dyspnea Consent: Per the patient Procedure: The patient exercised on a Saravanan protocol for 9 minutes completing Stage III achieving a peak heart rate of 187 bpm (104 % predicted maximal heart rate) with a peak blood pressure 200/78 mmHg and a peak MET capacity of 10 METs. The baseline ECG demonstrated sinus rhythm. The peak exercise ECG demonstrated no obvious ECG changes. There were rare PVCs during exercise. The functional capacity was considered good. There was no complaint of chest discomfort during exercise or recovery. The examination was discontinued secondary to dyspnea. Impression: 1. Technically adequate (percent predicted maximal heart rate greater than 85%) exercise tolerance test 2. Peak exercise ECG with no obvious ECG changes 3. There were rare PVCs during exercise. 4. Nuclear images pending Myocardial perfusion imaging study: Technique: The patient was injected with 14.9 mCi of technetium 99m Cardiolite and subsequently rest SPECT Cardiolite nuclear imaging was obtained in the horizontal long, vertical long, and short axis views. The patient exercised on a Saravanan protocol for 9 minutes completing Stage III achieving a peak heart rate of 187 bpm (104 % predicted maximal heart rate) with a peak blood pressure 200/78 mmHg and a peak MET capacity of 10 METs. The patient was injected with 45 mCi of technetium 99m Cardiolite and subsequently stress SPECT Cardiolite nuclear imaging was obtained in the horizontal long, vertical long, and short axis views. A gated Cardiolite study at peak stress was obtained. Interpretation: Rest and stress SPECT Cardiolite nuclear imaging status post realignment, normalization, and attenuation correction, demonstrates the appearance of a small area of diminished tracer uptake near the apical/lateral apical segments without significant change between rest and stress. There is end systolic thickening and brightening. The gated Cardiolite study demonstrates myocardial thickening and inward wall motion. The reported LVEF is 62 %. Impression: 1. Rest and stress SPECT Cardiolite nuclear imaging demonstrate cardio perfusion changes appearing compatible with physiologic apical thinning with no myocardial perfusion changes consider diagnostic for associated stress-induced myocardial ischemia or previous myocardial injury/infarction. 2. The gated Cardiolite study reports an LVEF of 62 %. This note was generated with [employer] software. It may contain incorrect words, spelling, and punctuation that were not noted in checking the note before signing.
--- NOTE | 2018-02-20 14:40 | STRESSREP_ITS ---
Stress Test Report Date: 02/20/2018 Procedure: Exercise tolerance test/imaging study Indications: Shortness of breath/dyspnea Consent: Per the patient Procedure: The patient exercised on a Saravanan protocol for 9 minutes completing Stage III achieving a peak heart rate of 187 bpm (104 % predicted maximal heart rate) with a peak blood pressure 200/78 mmHg and a peak MET capacity of 10 METs. The baseline ECG demonstrated sinus rhythm. The peak exercise ECG demonstrated no obvious ECG changes. There were rare PVCs during exercise. The functional capacity was considered good. There was no complaint of chest discomfort during exercise or recovery. The examination was discontinued secondary to dyspnea. Impression: 1. Technically adequate (percent predicted maximal heart rate greater than 85% ) exercise tolerance test 2. Peak exercise ECG with no obvious ECG changes 3. There were rare PVCs during exercise. 4. Nuclear images pending Myocardial perfusion imaging study: Technique: The patient was injected with 14.9 mCi of technetium 99m Cardiolite and subsequently rest SPECT Cardiolite nuclear imaging was obtained in the horizontal long, vertical long, and short axis views. The patient exercised on a Saravanan protocol for 9 minutes completing Stage III achieving a peak heart rate of 187 bpm (104 % predicted maximal heart rate) with a peak blood pressure 200/ 78 mmHg and a peak MET capacity of 10 METs. The patient was injected with 45 mCi of technetium 99m Cardiolite and subsequently stress SPECT Cardiolite nuclear imaging was obtained in the horizontal long, vertical long, and short axis views. A gated Cardiolite study at peak stress was obtained. Interpretation: Rest and stress SPECT Cardiolite nuclear imaging status post realignment, normalization, and attenuation correction, demonstrates the appearance of a small area of diminished tracer uptake near the apical/lateral apical segments without significant change between rest and stress. There is end systolic thickening and brightening. The gated Cardiolite study demonstrates myocardial thickening and inward wall motion. The reported LVEF is 62 %. Impression: 1. Rest and stress SPECT Cardiolite nuclear imaging demonstrate cardio perfusion changes appearing compatible with physiologic apical thinning with no myocardial perfusion changes consider diagnostic for associated stress-induced myocardial ischemia or previous myocardial injury/infarction. 2. The gated Cardiolite study reports an LVEF of 62 %. This note was generated with SafeLog[employer] software. It may contain incorrect words, spelling, and punctuation that were not noted in checking the note before signing.
== END ==
PROVIDERS: Visit Provider Internal Medicine Cardiovascular Disease
DX: I25.2 Old myocardial infarction (principal); I26.99 Other pulmonary embolism without acute cor pulmonale
CPT/HCPCS: 78452; 93017; 93306; A9500; Q9957; A4216; C8929

== ENCOUNTER → 2019-09-03 06:28 | Outpatient (CLI) | payer BC, SELFPAY ==
[2019-08-16 14:03] VITALS: BMI 45.6
--- NOTE | 2019-09-03 08:49 | STRESSREP_ITS ---
Stress Test Report Date: 09-03-2019 Procedure: Exercise tolerance test/imaging study Indications: Chest pain Consent: Per the patient Procedure: The patient exercised on a Saravanan protocol for 9 minutes and 30 seconds completing Stage III and 30 seconds of Stage IV achieving a peak heart rate of 184 bpm (103 % predicted maximal heart rate) with a peak blood pressure 180/72 mmHg and a peak MET capacity of 10 METs. The baseline ECG demonstrated normal sinus rhythm. The peak exercise ECG demonstrated somatic/motion artifact with no obvious ECG changes. There were no cardiac dysrhythmias pretest, during exercise, or recovery. The functional capacity was considered good. There was no complaint of chest discomfort during exercise or recovery. The examination was discontinued secondary to dyspnea. Impression: 1. Technically adequate (percent predicted maximal heart rate greater than 85%) exercise tolerance test 2. Peak exercise ECG demonstrated somatic/motion artifact with no obvious ECG changes 3. There were no cardiac dysrhythmias pretest, during exercise, or recovery 4. Nuclear images pending Myocardial perfusion imaging study: Technique: The patient was injected with 14.9 mCi of technetium 99m Cardiolite and subsequently rest SPECT Cardiolite nuclear imaging was obtained in the horizontal long, vertical long, and short axis views. The patient exercised on a Saravanan protocol for 9 minutes and 30 seconds completing Stage III and 30 seconds of Stage IV achieving a peak heart rate of 184 bpm (103 % predicted maximal heart rate) with a peak blood pressure 180/72 mmHg and a peak MET capacity of 10 METs. The patient was injected with 44.6 mCi of technetium 99m Cardiolite and subsequently stress SPECT Cardiolite nuclear imaging was obtained in the horizontal long, vertical long, and short axis views. A gated Cardiolite study at peak stress was obtained. Interpretation: Rest and stress SPECT Cardiolite nuclear imaging status post realignment, normalization, and attenuation correction, demonstrates the appearance of a small area of subtle diminished tracer uptake near the apical segments which appears to be more prominent at rest as opposed to stress and otherwise appears to demonstrate relative uniform tracer uptake and myocardial perfusion appearing within normal limits. There is end systolic thickening and brightening. The gated Cardiolite study demonstrates myocardial thickening and inward wall motion. The reported LVEF is 62 %. Impression: 1. Rest and stress SPECT Cardiolite nuclear imaging demonstrate myocardial perfusion changes appearing compatible with the effects of shifting soft tissue attenuation/artifact and/or physiologic apical thinning with no myocardial perfusion changes considered diagnostic for associated stress-induced myocardial ischemia. 2. The gated Cardiolite study reports an LVEF of 62 %. This note was generated with BrightWhistleation software. It may contain incorrect words, spelling, and punctuation that were not noted in checking the note before signing.
== END ==
PROVIDERS: Referring Provider Internal Medicine Cardiovascular Disease; Visit Provider Internal Medicine Cardiovascular Disease
DX: R07.9 Chest pain, unspecified (principal); I25.2 Old myocardial infarction
CPT/HCPCS: 78452; 93017; A9500; A4216

== ENCOUNTER 2020-01-21 00:02 | Emergency (ER) | payer BC, SELFPAY ==
[2019-08-16 14:03] VITALS: BMI 45.6
[2020-01-21] VITALS (8 sets, daily range): BP systolic 106–127; BP diastolic 59–76; PULSE 73–93; RESP 17–21; TEMP 37.9; O2SAT 95–98; BMI 42.1
--- NOTE | 2020-01-21 01:05 | CT_ITS ---
STUDY: CTA CHEST REASON FOR EXAM: Male, 44 years old. Chest pain and fever. RADIATION DOSAGE (If Supplied By Facility): CTDIvol = ( 11.48 ) mGy, DLP = ( 538.27 ) mGycm TECHNIQUE: The examination was performed with the intravenous administration of Isovue 370 100ml. Post-processing of the angiographic images was performed, with MIP reconstructed images. Individualized dose optimization techniques were used for this CT. COMPARISON: 11/13/2017 CTA chest. FINDINGS: Heart and great vessels: Heart size normal. No dissection or aneurysm of the thoracic aorta. No pulmonary embolus. No evidence of right heart strain. Lungs, pleura: No pneumonia, edema, or acute abnormality in the lungs. No pleural effusion. No pneumothorax. Mediastinum: No adenopathy or mass or hematoma. Osseous:No fracture or acute osseous abnormality. Chest wall: No concerning findings. Upper abdomen: No acute findings. Hepatosplenomegaly partially visible, similar to previous. CT/CTA Chest W/WO Contrast IMPRESSION: No pulmonary embolus or thoracic aortic dissection or aneurysm. No acute findings. Electronically Signed: Kiet Gage, at 2:34 EDT Tel , Service support ,
--- NOTE | 2020-01-21 01:06 | EKG12_ITS ---
Test Reason : CP Blood Pressure : / mmHG Vent. Rate : 092 BPM Atrial Rate : 092 BPM P-R Int : 156 ms QRS Dur : 106 ms QT Int : 370 ms P-R-T Axes : 053 -14 031 degrees QTc Int : 457 ms Normal sinus rhythm Normal ECG Confirmed by JOANNA GALVEZ ([id number]), circulating process inspector TG SETH ([id number]) on 01/23/2020 2:35:07 PM Referred By: ONEL Confirmed By:JOANNA GALVEZ
--- NOTE | 2020-01-21 01:08 | ED.DCSUM_ITS ---
History of Present Illness Chief Complaint: Chest Pain Informant: Patient Onset: Yesterday - over 24 hrs Activity at onset: Unknown - gradual onset Timing: Continuous Location: Left Parasternal - switches sides from time to time Current Severity: Mild Maximum Severity: Moderate Worsened By: Nothing. Not Worsened By: Exertion, Movement of Arm, Movement of Torso, Eating, Palpation, Breathing, Coughing Relieved By: Nothing Associated Symptoms: Fever. Negative for: Nausea, Vomiting, Diaphoresis, Dyspnea, Cough, Lightheadedness, Palpitations Narrative: Patient has had chest discomfort that has mostly been on the left side for over 24 hours, he started feeling chilled and malaise tonight he checked his temperature and it was over 101. He has had no cough, wounds, issues urinating although he urinates frequently because of his diabetes and drinking caffeine, a nd denies any other obvious source of his fever. 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 He was around dispatchers who tested positive but it has been weeks since he saw them physically. No other recent illnesses. He had a remote pulmonary embolus, he has been off of anticoagulants since 6 months after he was put on them. He states earlier he was out playing basketball with his children and did not experience any major issues while exerting himself. - Past Medical History (1) DM2 (diabetes mellitus, type 2) Status: Chronic (2) Essential (primary) hypertension Status: Chronic (3) LIANA (obstructive sleep apnea) Status: Chronic (4) Pulmonary embolism Status: Resolved Past Medical History - Allergies and Home Meds Allergies/Adverse Reactions: Allergies No Known Allergies Allergy (Verified 01/21/20 00:10) Primary Care Physician: Levi Mandujano MD [Primary Care Provider] - 3-5 Days Lives: With Family Smoking Status: Never smoker - Family History Maternal Family History: Family History (Last Reviewed 08/16/19 @ 14:04 by Delfina Hines) Mother Cancer Father Cancer Family History: Reports: - - No VTE Review of Systems General: Reports: Chills, Fever, Malaise. Denies: Sweats Eyes: Denies: Visual changes - bilaterally, Diplopia ENT: Denies: Rhinorrhea, Sore throat Cardiovascular: Reports: Chest pain. Denies: Palpitations Respiratory: Denies: Dyspnea, Cough, Dyspnea on exertion Gastrointestinal: Denies: Abdominal pain, Nausea, Vomiting, Diarrhea, Melena, Hematochezia Genitourinary: Denies: Dysuria, Hematuria, Frequency Musculoskeletal: Reports: Swelling - Chronic, worse in the left leg where he had orthopedic surgery, no worse lately. Denies: Back pain, Extremity Pain Skin: Denies: Rash, Wounds Neurological: Denies: Headache, Weakness, Numbness Physical Exam Vital Signs/Narrative: Vital Signs Temp Pulse Resp BP Pulse Ox 01/21/20 00:20 100.3 F H 93 17 127/76 H 97 01/21/20 00:03 100.3 F H 93 17 127/76 H 97 Inital Vital Signs reviewed: Yes General: Well nourished, Well developed, Obese, No Acute Distress - Conversive in full sentences, well-appearing Head: Normocephalic, Atraumatic Eyes: Perrl, EOMI ENT: Moist mucous membranes, No rhinorrhea Neck: Supple, Nontender, No lymphadenopathy Cardiovascular: Regular rate, Regular rhythm, No murmurs. Negative for: Tachycardia Respiratory: No distress, CTA bilaterally, Chest nontender Abdomen: Soft, Nontender, Nondistended, Normal bowel sounds Back: Nontender, Normal Inspection. Negative for: CVA tenderness Extremities: Nontender, Edema - 1+ bilateral lower extremities, worse on the left, to knees bilaterally. Negative for: Calf Tenderness Skin: Normal color, No rash, No Trauma Neurological: Alert, Oriented x3, Cranial nerves II-XII grossly intact, Normal Strength, Normal Sensation, Normal Gait Psychological: Normal affect, Normal Mood Diagnostic/Tx/Re-eval Impressions Chest CTA 01/21/20 01:05 IMPRESSION: No pulmonary embolus or thoracic aortic dissection or aneurysm. No acute findings. Electronically Signed: Kiet Gage, at 2:34 EDT Tel , Service support , 01/21/20 01:05 CTA Chest W/WO Contrast [CT] Stat 01/21/20 01:20 Mucosa - Nasopharyngeal Respiratory Panel (PCR) - Final 01/21/20 01:30 Mucosa - Nasopharyngeal Coronavirus COVID-19 PCR - Final Laboratory Results 01/21/20 01/21/20 01/21/20 00:30 00:30 01:20 WBC 5.3 RBC 5.02 Hgb 13.7 Hct 41.1 MCV 81.9 MCH 27.3 MCHC 33.3 RDW Std Deviation 41.3 RDW Coeff of Daniel 14.1 Plt Count 148 L MPV 10.4 Immature Gran % (Auto) 0.400 Neut % (Auto) 63.0 Lymph % (Auto) 21.5 [facility] % (Auto) 14.1 H Eos % (Auto) 0.6 Baso % (Auto) 0.4 Absolute Neuts (auto) 3.3 Absolute Lymphs (auto) 1.13 Nucleated RBC % 0 Sodium 136 Potassium 3.8 Chloride 103 Carbon Dioxide 28.0 Anion Gap 5 BUN 18 Creatinine 1.26 Estim Creat Clear Calc 87.89 Est GFR (MDRD) Af Amer 80 Est GFR (MDRD) Non-Af 66 BUN/Creatinine Ratio 14.3 Glucose 128 H Lactic Acid Calcium 8.6 Troponin I < 0.015 Urine Color Urine Clarity Urine pH Ur Specific [place] Urine Protein Urine Glucose (UA) Urine Ketones Urine Occult Blood Urine Nitrite Urine Bilirubin Urine Urobilinogen Ur Leukocyte Esterase Urine RBC Urine WBC Ur Squamous Epith Cells Urine Bacteria Urine Mucus COVID-19 (JAYDE) Cancelled 01/21/20 01/21/20 02:30 02:40 WBC RBC Hgb Hct MCV MCH MCHC RDW Std Deviation RDW Coeff of Daniel Plt Count MPV Immature Gran % (Auto) Neut % (Auto) Lymph % (Auto) [facility] % (Auto) Eos % (Auto) Baso % (Auto) Absolute Neuts (auto) Absolute Lymphs (auto) Nucleated RBC % Sodium Potassium Chloride Carbon Dioxide Anion Gap BUN Creatinine Estim Creat Clear Calc Est GFR (MDRD) Af Amer Est GFR (MDRD) Non-Af BUN/Creatinine Ratio Glucose Lactic Acid 0.6 Calcium Troponin I Urine Color Yellow Urine Clarity Clear Urine pH 7.0 Ur Specific [place] 1.010 Urine Protein Negative Urine Glucose (UA) Normal Urine Ketones Negative Urine Occult Blood Negative Urine Nitrite Negative Urine Bilirubin Negative Urine Urobilinogen Normal Ur Leukocyte Esterase Negative Urine RBC 0 SEEN Urine WBC 0 SEEN Ur Squamous Epith Cells 0-5 SEEN Urine Bacteria 0 SEEN Urine Mucus 0 SEEN COVID-19 (JAYDE) - Rhythm Strip Rhythm Strip: Sinus Rhythm Rate: 92 Ectopy: None - EKG Initial EKG Interpretation: Sinus Rhythm, No Acute Injury Pattern - normal EKG. no ectopy. - Medical Decision Making Patient felt well after we treated his fever here in ER. He has some mild chest discomfort, his work-up is unremarkable. In order to evaluate for COVID, I sent a test to be run here at our hospital and the patient was amenable to waiting for the results, he would not meet criteria through [facility] and their hotline is closed during the patient's stay in the ER. His test came back negative. I did discuss with him the fact that there is a high rate of false negatives, however he does not have any other objective ancillary indicators that would be consistent with COVID at this time. The cause of his fever is unknown. Blood and urine cultures were sent. I met a low suspicion for bacteremia, endocarditis, myocarditis given his negative work-up and low white blood count. I recommend close outpatient follow-up and symptomatic treatment at this time. He is comfortable with that plan. ED Disposition - Plan for ED Patient: Disposition: Home or Assisted Living Diagnosis: Fever, Atypical chest pain Instructions: ED Chest Pain Atypical Unkn Cause Referrals: Levi Mandujano MD [Primary Care Provider] - 3-5 Days
[2020-01-21 01:20] LABS: Absolute Lymphocyte Count 1.13 X10^3/uL (0.83-4.51); Absolute Neutrophil Count 3.3 X10^3/uL (2.0-7.7); Basophil# 0.02 X10^3/uL; Basophil% 0.4 % (0-1); Eosinophil# 0.03 X10^3/uL; Eosinophils% 0.6 % (0-5); Hematocrit 41.1 % (40-54); Hemoglobin 13.7 g/dL (13.0-16.5); Lymphocyte # 1.13 X10^3/ul (4.0); Lymphocyte % 21.5 % (19-41); Mean Corp Hgb Conc 33.3 g/dL (32-36); Mean Corpuscular Hgb 27.3 pg (27.0-32.0); Mean Corpuscular Volume 81.9 fL (80-94); Mean Platelet Vol. 10.4 fl (6.2-12.0); Monocyte# 0.74 X10^3/uL; Monocyte% 14.1 % (0-10); NRBC Flagged by Analyzer 0 % (0-5); Neutrophil # 3.31 X10^3/uL (2.7-7.7); Platelet Count 148 K/mm3 (150-450); RBC Distribution Width CV 14.1 % (11.6-14.6); RBC Distribution Width SD 41.3 fl (35.1-43.9); Red Blood Count 5.02 M/mm3 (4.6-6.2); White Blood Count 5.3 K/mm3 (4.4-11.0)
[2020-01-21 01:34] LABS: Anion Gap 5 (5-15); BUN 18 mg/dL (7-18); BUN/Creat Ratio 14.3 RATIO (10-20); Calcium,Total 8.6 mg/dL (8.5-10.1); Chloride 103 mmol/L (98-107); Creatinine, Serum 1.26 mg/dL (0.70-1.30); EST Glomerular Filtration Rate 66 mL/min (>60); Est Glom Filt Rate - Afr Amer 80 mL/min (>60); Estimated Creatinine Clearance 87.89 ml/min; Glucose 128 mg/dL (74-106); Potassium 3.8 mmol/L (3.5-5.1); Sodium Level 136 mmol/L (136-145)
[2020-01-21] MEDS: Acetaminophen 325 MG Tablet 650 MG PO (02:31)
[2020-01-21 02:50] LABS: Bacteria 0 SEEN /hpf (None Seen); Mucous, Urine 0 SEEN /hpf (<or=2+); Red Blood Cells-Urine 0 SEEN /hpf (0-5); White Blood Cells 0 SEEN /hpf (0-5)
[2020-01-21 02:53] LABS: Color, Urine Yellow (Yellow); Glucose, Dipstick Normal (Normal); Ketone-Dipstick Negative (Negative); Leukocyte Esterase-Dipstick Negative /ul (Negative); Nitrite-Dipstick Negative (Negative); Occult Blood-Urine Negative /ul (Negative); Protein-Dipstick Negative (Negative); Urine Bilirubin Dipstick Negative (Negative); Urine Clarity Clear (Clear); Urine Urobilinogen Normal (Normal)
[2020-01-21 02:59] LABS: Squamous Epithelial Cells - UA 0-5 SEEN /hpf (0-5)
[2020-01-21 03:24] LABS: Lactic Acid 0.6 mmol/L (0.4-1.9)
== END 2020-01-21 05:55 | disposition home or self-care (01) ==
PROVIDERS: Emergency Provider Emergency Medicine
DX: R07.89 Other chest pain (principal); R50.9 Fever, unspecified; I10 Essential (primary) hypertension; E11.9 Type 2 diabetes mellitus without complications; E66.9 Obesity, unspecified; Z86.711 Personal history of pulmonary embolism; Z79.4 Long term (current) use of insulin
CPT/HCPCS: 71275; 80048; 81001; 83605; 84484; 85025; 87040; 87086; 87088; 87633; 87635; 93005; 99284; Q9967; A4216; U0004

== ENCOUNTER → 2023-03-17 | Outpatient (CLI) | payer BC, SELFPAY | END | disposition home or self-care (01) | LOC: CVS 16:07 | PROVIDERS: PCP Family Medicine; Referring Provider Internal Medicine Cardiovascular Disease; Visit Provider Internal Medicine Cardiovascular Disease | DX: R07.9 Chest pain, unspecified (principal); I10 Essential (primary) hypertension; I25.2 Old myocardial infarction; G47.33 Obstructive sleep apnea (adult) (pediatric) | CPT/HCPCS: 93306; Q9957; A4216 ==